=== PATIENT | male | born 1990 | race Caucasian/White ===

== ENCOUNTER 2018-10-19 08:57 | Inpatient (IN) ==
--- NOTE | 2018-10-19 10:44 | Diag Imaging Result Doc PS360 ---
EXAM: CHEST-1 VIEW 10/19/2018 HISTORY: cough TECHNIQUE: AP portable upright at 1031 COMMENT: There is scoliosis. The appearance the chest has not changed significantly since 10/02/2018. IMPRESSION: Stable chest. Electronically signed by Nirav Greer 10/19/2018 10:42 AM
--- NOTE | 2018-10-19 11:57 | PROVIDER DOCUMENTATION ---
This chart was entered by Aditi Vick Scribe, acting as scribe for Jacky Swann MD. HPI-General Adult - General Chief Complaint: Cough Stated Complaint: BLOODY SPUTUM Time Seen by Provider: 10/19/18 11:21 Source: family Allergies/Adverse Reactions: Patient Allergies Allergy/AdvReac Type Severity Reaction Status Date / Time ephedrine [Ephedrine] Allergy Severe lower Verified 10/02/18 11:21 threshold for seizures glycopyrrolate Allergy Severe "dries up Verified 10/02/18 11:21 his urine" pseudoephedrine Allergy Severe lower Verified 10/02/18 11:21 threshold for seizures vancomycin Allergy Intermediate RASH Verified 10/02/18 11:21 fluticasone propionate * Allergy Mild nose bleed Verified 10/02/18 11:21 [From Flonase] hydrocodone [Hydrocodone] Allergy Mild behavioral Verified 10/02/18 11:21 problems latex Allergy Mild HIVES Verified 10/02/18 11:21 meperidine HCl * Allergy Unknown Lowers Verified 10/02/18 11:21 [From Demerol] seizure threshold aloe vera Allergy RASH Verified 10/02/18 11:21 tramadol HCl * [From Ultram] Allergy Lowers Verified 10/02/18 11:21 seizure threshold coban Allergy Mild HIVES Uncoded 10/02/18 11:21 Home Medications: Home Medication List Medication Instructions Recorded Confirmed Last Taken Type Valproic Acid [Depakene Liquid] 500 mg PEG TID 04/04/15 09/09/18 09/09/18 04:00 History Budesonide [Pulmicort] 1 dose NEB BID 08/21/16 09/09/18 09/08/18 History Albuterol [Albuterol Neb] 1 inh NEB [id number] 03/30/17 09/09/18 09/08/18 History Clonazepam [Klonopin] 2 mg PEG DIRECTED 03/30/17 09/09/18 09/09/18 04:00 History Sennosides [Senna Liquid] 10 ml PEG QAM 03/30/17 09/09/18 09/08/18 History Bisacodyl [Dulcolax] 10 mg NJ DAILY 08/02/17 09/09/18 09/08/18 History Zonisamide [Zonegran] 200 mg PEG QHS 02/11/18 09/09/18 09/08/18 History Omeprazole/Sodium Bicarbonate 40 mg PEG DAILY 06/04/18 09/09/18 09/08/18 History [Zegerid 20 mg] Ipratropium Mobile Neb [Atrovent 1 dose NEB 4XDAY 09/04/18 09/09/18 09/08/18 History Neb] Miconazole 2% Cream [Monistat-Derm 1 dose TOP BID PRN 09/04/18 09/09/18 09/08/18 History 2% Cream] Mupirocin Cream [Bactroban Cream] 1 dose TOP BID PRN 09/04/18 09/09/18 09/08/18 History Zinc Oxide 40% Ointment [Desitin 1 dose TOP BID PRN 09/04/18 09/09/18 09/08/18 History Ointment] Famotidine [Pepcid Liquid] 20 mg PO DAILY #1 bottle 09/09/18 Unknown Rx Azithromycin [Zithromax Z-Calixto] 250 mg PO DIRECTED #1 pkg 09/12/18 Unknown Rx Clindamycin [Cleocin Liquid] 300 mg PO Q6HR #200 bottle 09/22/18 Unknown Rx Azithromycin 250 mg PEG DAILY #11 tab 10/02/18 Unknown Rx Azithromycin 250 mg PO DAILY #6 tab 10/19/18 Unknown Rx Metoclopramide [Reglan Liquid] 10 mg PO TID #30 udc 10/19/18 Unknown Rx - History of Present Illness -Gen Adult Nature of Presenting Problems: 28 y/o male presents to ED with recurrent cough onset 3 months ago and bloody bronchial sputum per mother of pt. Pt has cerebral palsy, is bedridden, and has a feeding tube. Pt has been seen in ED numerous times for same. Mother of pt reports she has not taken him to see PCP for the issue, but he has an appointment with pulmonology in 2 days. Pt is alert and oriented. Location of Pain/Injury: reports: none Pain Radiation: reports: no radiation Quality of Pain: reports: none Severity: reports: mild Onset/Duration: reports: other (3 months ago) Timing: reports: still present Context/Activities at Onset: reports: none Modifying Factors: improves with: nothing Associated Symptoms: reports: cough, other (bloody bronchial secretions with home suctioning. mom thinks pt is aspirating. is on zegrid 40/day, zantac 300/day per dr ge. to see pulmonaloist, dr puente on sunday.no fever at home. p ox 99% rm air at home.) Similar Symptoms Previously?: No Recently seen or treated by another doctor?: No Review of Systems - Adult - REVIEW OF SYSTEMS - ADULT ROS:: ROS per family Constitutional: denies: chills, fever Eyes: reports: no symptoms reported Ears, Nose, Mouth & Throat: reports: no symptoms reported Cardiovascular: denies: chest pain, palpitations Respiratory: reports: cough, other (bloody bronchial secretions). denies: shortness of breath Gastrointestinal: denies: abdominal pain, diarrhea, nausea, vomiting Genitourinary: reports: no symptoms reported Musculoskeletal: denies: back pain, joint pain Integumentary: reports: no symptoms reported Neurological: denies: dizziness/vertigo, seizure Psychiatric: reports: no symptoms reported Endocrine: reports: no symptoms reported Hematologic/Lymphatic: reports: no symptoms reported Allergic/Immunologic: reports: no symptoms reported All Other Systems: Reviewed and Negative Past History - Adult - PAST MEDICAL HISTORY-ADULT Review of Records: reports: Old Records Reviewed, Nursing Assessment Review, Medications Reviewed Major Childhood Illnesses: reports: denies history Cardiovascular: reports: denies history Respiratory: reports: bronchitis (frequent staph bronchitis), pneumonia (recurring aspiration) Gastrointestinal: reports: GERD, GI bleed (AVM), obstruction, other (constipation, neurognic bowel and bladder) Obstetrical/Gynecological: reports: denies history Genitourinary: reports: retention (mother caths patient daily), other (neurogenic bladder) Musculoskeletal: reports: other (scoliosis/ contractures of le's and upper extremities) Neurological: reports: Seizures/Epilepsy, other (cerebral palsy) Psychiatric: reports: denies history Endocrine/Immune: reports: thyroid disorder (hypothyroid) Other Conditions: reports: MRSA, other (VRE) - PRIOR SURGERIES/PROCEDURES Surgical/Procedure History: reports: cholecystectomy, tonsillectomy, bowel surgery (PEG tube), orthopedic (extremity) (clavicle repair), other (nerve stimiulator placement/ VNS to control seizures; cerebral palsy; Vijay syndrom hx of) - PRIOR HOSPITALIZATIONS Prior Hospitalizations: reports: for similar symptoms - IMMUNIZATION STATUS Childhood Immunizations: See Nurse Assessment Flu Vaccine: See Nurse Assessment - FAMILY HISTORY Family History: reviewed, not pertinent - SOCIAL HISTORY Smoking: non-smoker Substance Use: none/never Alcohol Use Frequency: never Living Situation: family Physical Exam-General - PHYSICAL EXAM-ADULT Initial Vital Signs Reviewed: Yes - CONSTITUTIONAL General Appearance: appears well, alert, no apparent distress - EYES Eyes: PERRL/EOMI, pink conjunctivae - HEAD, EARS, NOSE, MOUTH & THROAT HENMT: normocephalic/atraumatic, moist mucous membranes, normal ENT inspection - NECK Neck: non-tender, full range of motion - RESPIRATORY Respiratory: chest non-tender, lungs clear, normal breath sounds, other (congested cough) - CARDIOVASCULAR Cardiovascular: normal peripheral pulses, regular rate, rhythm - GASTROINTESTINAL (ABDOMEN) Abdominal Exam: normal bowel sounds, non tender, soft - MUSCULOSKELETAL Back Exam: normal inspection, no CVA tenderness Extremity: normal range of motion, non-tender, normal gait - SKIN Integumentary: normal color, warm/dry - NEUROLOGIC Neurologic: grossly normal - PSYCHIATRIC Psych/Mental Status: normal mood/affect, normal thought content, normal thought process Progress - PLAN OF CARE/RESULTS Progress/Plan/Lab Results: Vital Signs - 8 hr 10/19/18 09:19 Temperature 97.2 F L Pulse Rate 70 Respiratory Rate 18 Blood Pressure 109/80 O2 Sat by Pulse Oximetry 96 Orders Category Date Time Status IV Insertion ORDERED Care 10/19/18 10:10 Completed CHEST-1 VIEW [RAD] Stat Exams 10/19/18 10:10 Completed CBC WITH DIFF [HEME] Stat Lab 10/19/18 11:19 Ordered COMPREHENSIVE METABOLIC PANEL [CHEM] Stat Lab 10/19/18 11:19 Ordered PROTIME WITH INR [COAG] Stat Lab 10/19/18 11:19 Ordered Result Diagrams: 10/19/18 11:40 - REASSESSMENT Reassessment #1 Time Reassessed: 11:53 Status: unchanged (pt has upper airway congestion but lungs completely clear to auscultation,p ox 99% rm air, CXR clear. will add reglan for possiblreflux problem . pt to see dr Puente in 2 days.) - XRAY 1 XRAY Study: Chest Impression: Normal (COMMENT: There is scoliosis. The appearance the chest has not changed significantly since 10/02/2018. IMPRESSION: Stable chest. Electronically signed by Nirav Greer 10/19/2018 10:42 AM 10/19/18 1042) Departure - Departure Date of Disposition Decision: 10/19/18 Time of Disposition Decision: 11:35 DIAGNOSIS: Bronchitis, Chronic cough GERD (gastroesophageal reflux disease) Qualifiers: Esophagitis presence: without esophagitis Qualified Code(s): K21.9 - Gastro-es ophageal reflux disease without esophagitis Disposition: HOME 01 Certified Medical Emergency: Emergent Condition: Stable Additional Freetext Instructions: ED Follow Up Instructions: Go to previously scheduled pulmonology appointment on Sunday. You have been treated by a care provider in the Emergency Department. These instructions are being provided to you so you can have an understanding of how to care for yourself upon discharge. Upon discharge from the Emergency De partment, you are responsible for making arrangements for follow-up care by a physician of your choice. Take all prescribed medications as directed. Return to the Emergency Department immediately for any new or worsening symptoms. You may call the Physician Referral phone number at [phone] to obtain a list of Physicians who are taking new patients. Prescriptions: Azithromycin 250 mg PO DAILY #6 tab Metoclopramide [Reglan Liquid] 10 mg PO TID #30 udc Referrals and Follow-Ups: Maria L Enciso MD [Primary Care Provider] - Discharge Education: Gastroesophageal Reflux Disease, Adult, [id number], Acute Bronchitis, Adult - Critical Care Note This patient required my direct & personal management of CC.: No Attestation - Physician/ MOLLY Attestation Patient care was provided by Advanced Practice Provider:: No The physician spent face to face time with patient:: Yes Advanced Practice Provider documentation review:: Supervising physician onsite and consulted in the evaluation and care of this patient. The physician did have a face to face encounter with the patient. This chart was documented by the indicated scribe, (Aditi Vick Scribe) and accurately reflects the services I performed and decisions made by me, Jacky Swann MD, as attested by the provider's signature.
[2018-10-19 11:58] LABS: EOS# 0.05 X1000 (0.0-0.7); HEMATOCRIT 42.6 % (42.0-52.0); HEMOGLOBIN 14.1 g/dL (14.0-18.0); LYMPH# 2.11 X1000 (1.2-3.4); LYMPH% 43.9 % (20.5-51.1); MCH 32.2 PG (27-31); MCHC 33.1 g/dL (33-37); MCV 97.3 FL (81-99); MONO# 0.49 X1000 (0.11-0.59); MONO% 10.2 % (1.7-9.3); MPV 11.6 FL (7.4-10.4); NEUT# 2.16 X1000 (1.4-6.5); NEUT% 44.9 % (42.2-75.2); PLT 98 X1000 (130-400); RBC 4.38 XMIL (4.7-6.1); RDW 13.3 % (11.5-14.5); WBC 4.81 X1000 (4.8-10.8)
[2018-10-19 11:59] LABS: INR 1.04; PROTIME 14.4 Seconds (11.0-16.0)
[2018-10-19 12:12] LABS: AGAP 10; ALB/GLOB RATIO 1.1; ALBUMIN 3.9 g/dL (3.5-5.0); ALKALINE PHOSPHATASE 58 U/L (32-122); BUN 8 mg/dL (8-22); CALCIUM 9.4 mg/dL (8.8-10.2); CHLORIDE 100 mmol/L (98-107); COSMO 270; CREATININE 0.6 mg/dL (0.7-1.2); ESTIMATED GFR > 60; GLUCOSE 90 mg/dL (70-104); GOT 17 U/L (10-34); GPT 8 U/L (10-44); POTASSIUM 4.1 mmol/L (3.5-5.1); SODIUM 136 mmol/L (136-145); TCO2 26 mmol/L (25-35); TOTAL BILIRUBIN 0.18 mg/dL (0.20-1.00); TOTAL PROTEIN 7.3 g/dL (6.3-8.3)
[2018-10-19] MEDS ORDERED: NS 1,000 ML IV ONE (15:42)
[2018-10-19] MEDS ORDERED: XOPENEX NEB INH PRN (15:43)
--- NOTE | 2018-10-19 16:49 | HISTORY AND PHYSICAL ---
PRIMARY CARE PHYSICIAN: Dr. Enciso CHIEF COMPLAINT: Cough. HISTORY OF PRESENT ILLNESS: Mr. Lopez is a 28-year-old male well known to our service with a history of cerebral palsy, who is taken care of by his mother. He is a total care patient and bedbound and is only fed via PEG tube. His mother states that she has been concerned over the past few days and weeks that he has gurgling and coughing despite the extensive deep suctioning that she does and that she feels he has a respiratory infection. There has been no fever, and she reports that his pulse oximetry has been normal at home. With the exception of the congested upper airway, he has been in his normal state of health. When she came to the ER done, he had a workup done which did not show anything acute. His chest x-ray was normal, and his white blood cell count was normal as were his chemistries and vital signs. While in the ER, his mother apparently aspirated some blood out of his PEG tube and felt that he had continued GI bleeding from ulcers that were observed on EGD in the past. Dr. Jimenez with GI was consulted in the ER. He indeed felt the patient had some coffee-ground emesis coming out of his PEG tube and felt that he needed to be admitted, so we will admit him and start him on Protonix and Carafate. PAST MEDICAL HISTORY: 1. Cerebral palsy, total care patient. 2. History of encephalopathy and epilepsy. 3. History of GI bleeding and gastric ulcers in the past. 4. History of multiple upper respiratory infections. 5. Neurogenic bowel. PAST SURGICAL HISTORY: He has had a cholecystectomy, bowel surgery with PEG placement multiple times, right clavicle repair, nerve stimulator to control seizures, tonsillectomy, eye surgery, EGDs. SOCIAL HISTORY: Lives with his mother. He does not smoke, drink or use illicit substances. REVIEW OF SYSTEMS: Unable to obtain. ALLERGIES: Ephedrine, glycopyrrolate, pseudoephedrine, vancomycin, Flonase, hydrocodone, latex, Demerol, Aloe Vera, tramadol and Coban. HOME MEDICATIONS: Bisacodyl 10 mg FL daily, Pulmicort inhaled as directed, Klonopin 2 mg per PEG as scheduled, Pepcid liquid 20 mg daily, ipratropium nebulizer 4 times a day, Reglan 10 mg p.o. t.i.d., Zantac 20 mg p.o. daily, Senokot 10 mL per PEG in the morning, Depakote liquid 10 mL via PEG t.i.d., Zonegran 200 mg per PEG at bedtime. PHYSICAL EXAMINATION: VITAL SIGNS: Blood pressure is 108/66, heart rate 76, respiratory rate 20, O2 saturation is 98% on room air, temperature is 97.6. GENERAL: A chronically ill, frail appearing 28-year-old male lying in hospital bed in no acute distress. NEUROLOGICAL: He is nonverbal. His eyes open spontaneously. He does not follow commands. His legs and arms are crossed. He resists passive eye opening. HEENT: Head is atraumatic and normocephalic. His oral mucosa is dry. NECK: Trachea is midline. There is no JVD. CHEST: Bases are clear to auscultation. He does have some congestion in the upper airway. CARDIOVASCULAR: Regular rate and rhythm. S1 and S2 noted. There is no murmur. GASTROINTESTINAL: Soft. PEG tube without erythema or blood. Hypoactive bowel sounds. EXTREMITIES: Without edema or clubbing. DIAGNOSTIC DATA: WBC is 4.8, hemoglobin 14.1, hematocrit 42.6, platelet count 98. INR is 1.04. Sodium is 136, potassium 4.1, chloride 100, CO2 is 26, anion gap is 10, BUN is 8, creatinine 0.6, glucose 90, calcium 9.4, ALT is 8, alkaline phosphatase 58, albumin 3.9. Chest x-ray is negative. ASSESSMENT AND PLAN: 1. Apparent gastrointestinal bleed. There is no blood visualized on exam, and his blood counts are actually better than they have been in quite some time. We will start him on some Protonix and Carafate as recommended by Dr. Jimenez. He is scheduled for an EGD on Sunday. We will check daily labs and continue all of his home medications. 2. History of cerebral palsy. Aware. Stable. 3. History of epilepsy. Stable. Aware. We will continue his home medications. 4. Gastroesophageal reflux disease with a history of gastric ulcers. Continue therapy as outlined in number 1. 5. Upper respiratory congestion. We will continue breathing treatments. Chest is negative. No white count or fever. 6. Thrombocytopenia. This appears to be a very chronic issue. We will monitor platelet counts daily. Only transfuse if necessary. 7. DVT prophylaxis with SCDs. Further recommendations to follow. Dictated by MICHEAL Camacho for Elizabeth Cheney MD cc: MICHEAL Camacho MD I performed a face to face encounter on the patient. I reviewed all labs and imaging on the patient. I agree with the H&P as dictated. is a 28 year old male who was brought to the ER by his parents due to blood coming from his peg tube. On exam, the patient is awake and alert. His heart sounds are normal. His lung sounds are diminished at the bases. Will admit the patient to the medical floor on telemetry. Will consult GI and start the patient on IV protonix. The patient is also constipated so we will start laxative therapy. His H/H will be monitored closely. MTDD
[2018-10-19] MEDS ORDERED: DEPAKENE LIQUID PEG SCH (17:00)
[2018-10-19] MEDS: PROTONIX IV SCH (17:12)
[2018-10-19] MEDS: PULMICORT INH SCH (19:20)
[2018-10-19] MEDS: XOPENEX NEB INH SCH (19:20)
[2018-10-19] MEDS: ZONEGRAN PEG SCH (22:45)
[2018-10-19] MEDS: KLONOPIN PEG SCH (22:45)
[2018-10-19] MEDS: CARAFATE LIQUID PEG SCH (22:45)
--- NOTE | 2018-10-19 23:33 | GASTROENTEROLOGY CONSULTATION ---
DATE: 10/19/2018 REQUESTING PHYSICIAN: Dr. Elizabeth Cheney. PRIMARY CARE DOCTORS: Dr. Maria L Enciso. REASON FOR CONSULTATION: Coffee-grounds in the PEG tube. HISTORY OF PRESENT ILLNESS: Mr. Lopez is a 28-year-old male who was admitted on 10/19/2018 for cough and bronchitis. The patient has cerebral palsy and he has a chronic PEG tube, has been replaced on 09/09/[address] Olson. According to the patient's mother, who is his caregiver, she noted coffee-ground material in his PEG tube. According to the patient's mother, the patient has had EGD done a few months ago. At that time, there was evidence of some ulcers in the stomach. During this admission, the patient's H and H was normal. Gastroenterology was counseled for the management of coffee-grounds in the PEG tube. PAST MEDICAL HISTORY: 1. Reflux esophagitis. 2. Hiatal hernia. 3. History of pyloric channel ulcer. 4. Severe acute erosive gastritis. 5. Chronic reflux disease. 6. Cerebral palsy. 7. Seizure disorder. 8. Neurogenic bowels. 9. Prior MRSA infections. PAST SURGICAL HISTORY: 1. Cholecystectomy. 2. Bowel surgery with PEG tube placement. 3. Right clavicle repair. 4. Nerve stimulator to control seizures. 5. Tonsillectomy. 6. Eye surgery. 7. Repair of muscles. FAMILY HISTORY: Noncontributory. SOCIAL HISTORY: He lives with his mother and father. No history of alcohol or tobacco. ALLERGIES: Pseudoephedrine, glycopyrrolate, vancomycin, Flonase, latex, Demerol, aloe vera, tramadol, Coban, and hydrocodone. MEDICATIONS IN THE HOSPITAL INCLUDE: Zonisamide, Carafate 1 g per PEG every 6 hours, Dulcolax 10 mg per rectum daily, Pulmicort 0.5 mg inhaled b.i.d., clonazepam 2 mg per PEG as directed, and Xopenex 1.25 mg inhaled every 4 hours as needed, and then normal saline 75 ml/h, Protonix IV b.i.d., ranitidine 300 mg per PEG daily, valproic acid 500 mg per PEG t.i.d., and famotidine 20 mg once daily. The patient will be currently NPO. REVIEW OF SYSTEMS: Obtained. Patient has cerebral palsy. History obtained from the records and the patient's mother at the bedside. PHYSICAL EXAMINATION: Vital Signs: Temperature 97.6 degrees, pulse of 76, respiratory 20, blood pressure 108/62, saturating 92% on room air. Body weight 100 pounds 8 ounces. BMI 16.2 kg/m2. General: Thinly built, lying in bed, in no acute distress. HEENT: No pallor. No icterus. Neck: Supple. Abdomen: Soft, nontender. No guarding. PEG tube in place. External bur was in place. The PEG tube site appeared very clean, there was no redness or erythema noted around the PEG tube site. No drainage noted around the PEG tube site. There was evidence of coffee-grounds aspirate in the PEG tubing. Abdomen was soft. Extremities: He has lack of muscle mass in the upper and lower extremities. LABS: His hemoglobin and hematocrit is 14.1 and 42.6, white count of 4.81, platelet count of 98,000. INR 1.04, PTT of 14.4. Sodium 130, potassium 4.1, chloride 100, bicarb 26, anion gap 10, BUN of 8, creatinine 0.6. Glucose of 90, calcium 9.4, total bilirubin is 0.18, AST 17, ALT 8, alkaline phosphatase 58, total protein is 7.3, albumin 3.9. IMAGING: Chest x-ray done today showed there is scoliosis, otherwise stable chest. His last EGD report was from 09/09/[address] Olson, which showed reflux esophagitis with bile reflux to mid esophagus, hiatal hernia, severe acute erosive gastritis changes consistent with Elyse fundoplication and pyloric channel ulcer. IMPRESSION AND PLAN: 1. Coffee-grounds in the PEG tube. 2. Cerebral palsy. 3. History of gastritis, esophagitis, and hiatal hernia on last EGD in 4. History of seizures. RECOMMENDATIONS: We will continue Protonix b.i.d. We will keep him NPO but will give him IV fluids. We may have to consider either famotidine or ranitidine at bedtime. He will continue on his seizure medications per the PEG tube. He will continue bowel regimen with Dulcolax. Depending on his clinical course, we will decide about EGD, likely on Sunday by Dr. Vann. The risks, benefits, indications, alternatives were discussed with the patient's family at bedside. All questions answered. Please call us if any further questions. cc: MD Denys Day MD Katherine Takundwa, MD Bhavna Gowda, MD MTDD
[2018-10-20] MEDS: XOPENEX NEB INH SCH ×6 (00:03→19:15)
[2018-10-20] MEDS: SODIUM CHLORIDE 0.9% INJ SCH ×2 (03:38→17:09)
[2018-10-20] MEDS: CARAFATE LIQUID PEG SCH ×4 (03:38→21:08)
[2018-10-20] MEDS: PROTONIX IV SCH ×2 (03:38→17:09)
[2018-10-20 06:51] LABS: BASO# 0.01 X1000 (0.0-0.2); BASO% 0.2 % (0.0-0.8); EOS# 0.05 X1000 (0.0-0.7); EOS% 1.2 % (0.0-10.0); HEMOGLOBIN 12.4 g/dL (14.0-18.0); LYMPH# 2.32 X1000 (1.2-3.4); LYMPH% 56.9 % (20.5-51.1); MCH 32.6 PG (27-31); MCHC 33.5 g/dL (33-37); MCV 97.4 FL (81-99); MONO# 0.46 X1000 (0.11-0.59); MONO% 11.3 % (1.7-9.3); MPV 11.8 FL (7.4-10.4); NEUT# 1.24 X1000 (1.4-6.5); NEUT% 30.4 % (42.2-75.2); PLT 88 X1000 (130-400); RDW 13.4 % (11.5-14.5); WBC 4.08 X1000 (4.8-10.8)
[2018-10-20 07:17] LABS: AGAP 12; BUN 9 mg/dL (8-22); CALCIUM 8.7 mg/dL (8.8-10.2); CHLORIDE 102 mmol/L (98-107); COSMO 268; CREATININE 0.5 mg/dL (0.7-1.2); ESTIMATED GFR > 60; GLUCOSE 78 mg/dL (70-104); MAGNESIUM 1.8 mg/dL (1.5-2.7); POTASSIUM 3.7 mmol/L (3.5-5.1); SODIUM 135 mmol/L (136-145); TCO2 21 mmol/L (25-35)
[2018-10-20] MEDS: PULMICORT INH SCH ×3 (07:32→19:15)
[2018-10-20] MEDS: KLONOPIN PEG SCH ×2 (08:52→21:09)
[2018-10-20] MEDS: DEPAKENE LIQUID PEG SCH ×3 (08:53→21:08)
[2018-10-20] MEDS ORDERED: PEPCID LIQUID PO SCH (09:00)
[2018-10-20] MEDS: ZANTAC LIQUID PEG SCH (09:07)
[2018-10-20] MEDS: SENNA LIQUID PEG SCH (09:07)
[2018-10-20] MEDS: DULCOLAX PR SCH (09:08)
[2018-10-20] MEDS: BENADRYL IV PRN ×2 (13:13→21:24)
[2018-10-20] MEDS ORDERED: NS 1,000 ML ONE (14:17)
[2018-10-20] MEDS: MIRALAX PEG SCH (15:05)
[2018-10-20] MEDS: NS 1,000 ML IV SCH (16:05)
--- NOTE | 2018-10-20 17:08 | GASTROENTEROLOGY PROGRESS NOTE ---
DATE: 10/20/2018 PRIMARY TRIMMING CUTTER MACHINE: Carol Olson MD SUBJECTIVE: Patient is resting in bed. No evidence of any more GI bleeding. He had a very small bowel movement today. His mother was present at bedside. No fevers reported. OBJECTIVE: Vital Signs: Temperature 97.6, pulse rate of 68, respiratory rate 18, blood pressure 120/69, saturating 98% on room air. General Appearance: Thinly built, lying in bed, in no acute distress. HEENT: Mild pallor. No icterus. Neck: Supple. Abdomen: There is a PEG tube in place. Abdomen is soft, nondistended. No guarding. No rebound. The external PEG tube site appears healthy. There was no evidence of any erythema around the external bumper or any drainage on the external bumper. Extremities: No cyanosis or clubbing. Neurological: He is awake, but he has baseline cerebral palsy. LABORATORY DATA: Hemoglobin is 12.4, hematocrit 37, white count of 4.08, platelet count of 88,000. Sodium 135, potassium 3.7, chloride 102, bicarbonate 21, anion gap 12, BUN of 9, creatinine 0.5, glucose of 78, calcium is 8.7. Magnesium 1.8. IMPRESSION AND PLAN: 1. Coffee-ground emesis in the PEG tube. In this regard, we will keep the patient on Protonix b.i.d. We will also keep him on ranitidine per PEG daily. We will watch his hemoglobin and hematocrit. We will have a CBC tomorrow morning. 2. Constipation. He will continue on senna 10 mL per PEG q.a.m., and we will start him on MiraLAX per PEG, 17 g p.o. daily. 3. We will start the tube feeds today at 10 mL/h and slowly advance as tolerated. We have requested Nutrition consultation. 4. Seizures. He will continue on seizure medication. 5. Cerebral palsy. Aware. 6. Dehydration. We will start patient on IV fluids with normal saline at 75 mL/hour. 7. Gastrointestinal (GI) prophylaxis. As above with PPIs. The above plans were discussed with the patient's family at bedside, and all questions were answered. Please call us with any further questions. Dr. Vann will resume the care for tomorrow. cc: Vini Jimenez MD [facility]
--- NOTE | 2018-10-20 19:06 | PROGRESS NOTE ---
DATE: 10/20/2018 SUBJECTIVE: The patient is resting comfortably in bed. His family is present at the bedside. OBJECTIVE: Vital Signs: Temperature 98.2 degrees, blood pressure 105/67, heart rate 76, respirations 16, O2 saturations 100% on room air. General: This is a young male lying in bed in no acute distress. Heart: S1, S2 normal. Regular rate and rhythm. Lungs: Clear to auscultation bilaterally. Abdomen: Soft, nontender, nondistended. Extremities: No edema. No cyanosis. Neurologic: The patient is awake. LABORATORY DATA: White blood cell count 4, hemoglobin 12, hematocrit 37, platelets 88,000. Sodium 135, potassium 3.7, chloride 102, CO2 of 21, BUN 9, creatinine 0.4, glucose 78. Magnesium 1.8. ASSESSMENT AND PLAN: 1. Gastrointestinal bleed. Continue on protonix. GI is following. 2. Cerebral palsy. Aware 3. Chronic thrombocytopenia. Stable. 4. Seizure disorder. Continue on valproic acid. cc: Elizabeth Cheney MD MTDD
[2018-10-20] MEDS: ZONEGRAN PEG SCH (21:09)
[2018-10-21] MEDS: XOPENEX NEB INH SCH ×7 (02:13→23:16)
[2018-10-21] MEDS: CARAFATE LIQUID PEG SCH ×4 (04:47→21:31)
[2018-10-21] MEDS: PROTONIX IV SCH ×2 (04:57→16:54)
[2018-10-21] MEDS: NS 1,000 ML IV SCH ×2 (04:57→17:52)
[2018-10-21] MEDS: SODIUM CHLORIDE 0.9% INJ SCH ×2 (04:57→16:54)
[2018-10-21] MEDS ORDERED: KLONOPIN PO SCH (06:00)
[2018-10-21] MEDS: DEPAKENE LIQUID PEG SCH ×3 (06:28→21:31)
[2018-10-21 06:47] LABS: BASO# 0.01 X1000 (0.0-0.2); BASO% 0.1 % (0.0-0.8); EOS# 0.12 X1000 (0.0-0.7); EOS% 1.5 % (0.0-10.0); HEMATOCRIT 39.6 % (42.0-52.0); HEMOGLOBIN 12.9 g/dL (14.0-18.0); LYMPH# 1.76 X1000 (1.2-3.4); LYMPH% 21.5 % (20.5-51.1); MCH 32.4 PG (27-31); MCHC 32.6 g/dL (33-37); MCV 99.5 FL (81-99); MONO# 1.18 X1000 (0.11-0.59); MONO% 14.4 % (1.7-9.3); NEUT# 5.13 X1000 (1.4-6.5); NEUT% 62.5 % (42.2-75.2); PLT 82 X1000 (130-400); RBC 3.98 XMIL (4.7-6.1); RDW 13.8 % (11.5-14.5)
[2018-10-21 06:48] LABS: AGAP 11; BUN 7 mg/dL (8-22); CALCIUM 8.8 mg/dL (8.8-10.2); CHLORIDE 110 mmol/L (98-107); COSMO 283; CREATININE 0.5 mg/dL (0.7-1.2); ESTIMATED GFR > 60; GLUCOSE 99 mg/dL (70-104); PHOSPHORUS 3.7 mg/dL (2.7-4.5); POTASSIUM 4.2 mmol/L (3.5-5.1); PREALBUMIN 20.3 mg/dL (20-40); SODIUM 143 mmol/L (136-145); TCO2 22 mmol/L (25-35)
[2018-10-21] MEDS: KLONOPIN PO SCH (06:52)
[2018-10-21] MEDS: PULMICORT INH SCH ×2 (07:41→19:34)
[2018-10-21] MEDS: MIRALAX PEG SCH (10:09)
[2018-10-21] MEDS: SENNA LIQUID PEG SCH (10:09)
[2018-10-21] MEDS: DULCOLAX PR SCH (10:10)
[2018-10-21] MEDS ORDERED: SORBITOL PEG ONE (13:09)
[2018-10-21] MEDS: ZANTAC LIQUID PEG SCH (14:10)
[2018-10-21] MEDS: KLONOPIN PEG SCH ×2 (14:11→21:32)
--- NOTE | 2018-10-21 16:08 | Diag Imaging Result Doc PS360 ---
EXAM: ABDOMEN FLAT/UPRIGHT 10/21/2018 HISTORY: confirm GJ tube placement TECHNIQUE: Flat and upright abdomen two views COMMENT: There is a gastrojejunal tube with its tip apparently on the left side in the jejunum. There is slightly less stool present in the colon than on the previous examination of 09/09/2018. No contrast was injected in the tube on the current examination. IMPRESSION: Tube tip apparently in the jejunum as previously. Electronically signed by Nirav Greer 10/21/2018 4:06 PM
[2018-10-21] MEDS ORDERED: LACTULOSE PEG ONE (18:34)
--- NOTE | 2018-10-21 18:42 | PROGRESS NOTE ---
DATE: 10/21/2018 SUBJECTIVE: The patient is resting comfortably in bed. He is having regular bowel movements. OBJECTIVE: Vital Signs: Temperature 98.3 degrees, blood pressure 102/76, heart rate 114, respirations 20, O2 saturations 98% on room air. General: This is a young male lying in bed in no acute distress. Heart: S1, S2 normal. Regular rate and rhythm. Lungs: Equal air entry bilaterally. No wheezing. No rales. No rhonchi. Abdomen: Positive bowel sounds. Soft, nontender, nondistended. Extremities: No edema, no cyanosis. Neurologic: The patient is awake and able to move his extremities; however, they are contracted. LABORATORY DATA: White blood cell count 8.2, hemoglobin 12, hematocrit 39, platelets 82,000. Sodium 143, potassium 4.2, chloride 110, CO2 22, BUN 7, creatinine 0.5, glucose 99. ASSESSMENT AND PLAN: 1. Possible gastrointestinal bleed. The patient's hemoglobin and hematocrit have been stable since admission. No obvious bleeding noted so far during this admission. We will await further recommendations from GI. 2. Constipation. Improved. Continue with the current bowel regimen. 3. Cerebral palsy. Aware. 4. Chronic thrombocytopenia. Stable. 5. Seizure disorder. Continue on valproic acid. 6. Nutrition. Continue with tube feeds. cc: Elizabeth Cheney MD
--- NOTE | 2018-10-21 19:38 | GASTROENTEROLOGY PROGRESS NOTE ---
DATE: 10/21/2018 SUBJECTIVE: The patient was resting comfortably. No signs of agitation. Mother tells me that he still has some cough. She also informs me that for the past 3 days, he has not had any bowel movements. OBJECTIVE: Vital Signs: Temperature 98.3, pulse 114 per minute, breathing 20, blood pressure 102/76. Abdomen: Full, soft, nontender. But he tenses up his abdomen on examination. The PEG site appeared to be clean and dry. LABORATORIES: Reviewed which showed sodium 143, potassium 4.2, chloride 110, bicarb level 22. BUN is 7, creatinine 0.3. WBC 8.20, hemoglobin 12.9, hematocrit 39.6, MCV 99.5, platelets were 82. IMPRESSION: 1. Constipation. I will give him lactulose to see if it helps him to have a bowel movement. 2. Reflux, further complicated by constipation. Hopefully, constipation will help his reflux. In the meantime, I agree with continuing the current tube feeding and keep his head elevated all the time and also continue proton pump inhibitor. 3. Cerebral palsy is unchanged and stable, not much to add. I have discussed this case with the patient's mother, who was present at bedside. She understood and agrees to proceed. cc: Denys Vann MD
[2018-10-21] MEDS: ZONEGRAN PEG SCH (21:31)
[2018-10-22] MEDS ORDERED: LACTULOSE PO ONE (02:58)
[2018-10-22] MEDS: XOPENEX NEB INH SCH ×6 (03:22→22:44)
[2018-10-22] MEDS: PROTONIX IV SCH ×2 (03:29→16:25)
[2018-10-22] MEDS: CARAFATE LIQUID PEG SCH ×4 (03:29→20:53)
[2018-10-22] MEDS: KLONOPIN PO SCH (05:21)
[2018-10-22] MEDS: DEPAKENE LIQUID PEG SCH ×3 (05:21→20:55)
[2018-10-22 05:42] LABS: BASO# 0.02 X1000 (0.0-0.2); BASO% 0.2 % (0.0-0.8); EOS# 0.13 X1000 (0.0-0.7); EOS% 1.2 % (0.0-10.0); HEMATOCRIT 38.7 % (42.0-52.0); HEMOGLOBIN 12.5 g/dL (14.0-18.0); LYMPH# 1.93 X1000 (1.2-3.4); LYMPH% 17.8 % (20.5-51.1); MCH 32.2 PG (27-31); MCHC 32.3 g/dL (33-37); MCV 99.7 FL (81-99); MONO# 1.69 X1000 (0.11-0.59); MONO% 15.6 % (1.7-9.3); NEUT# 7.09 X1000 (1.4-6.5); NEUT% 65.2 % (42.2-75.2); PLT 83 X1000 (130-400); RBC 3.88 XMIL (4.7-6.1); WBC 10.86 X1000 (4.8-10.8)
[2018-10-22 06:16] LABS: AGAP 11; BUN 3 mg/dL (8-22); CALCIUM 8.8 mg/dL (8.8-10.2); CHLORIDE 102 mmol/L (98-107); COSMO 266; CREATININE 0.5 mg/dL (0.7-1.2); ESTIMATED GFR > 60; GLUCOSE 92 mg/dL (70-104); SODIUM 135 mmol/L (136-145); TCO2 22 mmol/L (25-35)
[2018-10-22] MEDS: NS 1,000 ML IV SCH ×2 (06:47→23:00)
[2018-10-22] MEDS: PULMICORT INH SCH ×3 (07:24→19:30)
[2018-10-22] MEDS: SENNA LIQUID PEG SCH (09:31)
[2018-10-22] MEDS: ZANTAC LIQUID PEG SCH (09:33)
[2018-10-22] MEDS: MIRALAX PEG SCH (09:34)
[2018-10-22] MEDS: DULCOLAX PR SCH (09:54)
--- NOTE | 2018-10-22 15:04 | PROGRESS NOTE ---
DATE: 10/22/2018 SUBJECTIVE: Patient resting in bed. The patient was noted to have recurrent seizure activity this morning. He does have family present in the room. OBJECTIVE: Vital Signs: Temperature 99.5 degrees, pulse 93, respirations 18, blood pressure is 130/59, oxygen saturation 97%. HEENT: Head is atraumatic, normocephalic. Cardiovascular: S1, S2. Respiratory: Evidence of good entry bilaterally. Abdomen: Soft, nontender. No masses felt. Extremities: No evidence of edema. Central Nervous System: No obvious focal deficits are noted. The patient is noted to have contractures. LABORATORY DATA: WBCs 10.86, hematocrit 38.7, with a platelet count of 83,000. Sodium is 135, potassium 4.0, chloride is 102, bicarb is 22, BUN is 3, creatinine 0.5. ASSESSMENT AND PLAN: 1. Gastrointestinal bleed. Continue the patient on proton pump inhibitor. Monitor hemoglobin and hematocrit. Transfuse packed red blood cells if needed. Gastroenterology following. 2. Gastroesophageal reflux disease. Maintain the patient on proton pump inhibitor. Keep head of bed elevated. 3. Status post percutaneous endoscopic gastrostomy. Continue percutaneous endoscopic gastrostomy tube feeding. 4. Seizure disorder. Maintain the patient on seizure precaution. Use Ativan on an as needed basis for active seizures, and maintain the patient on antiepileptic drugs. Will consult with Neurology. 5. Constipation. Continue current regimen. 6. Thrombocytopenia. There has been a steady decline in the patient's platelet count. I suspect that this may be medication induced. Will continue to follow up on the patient's platelet count, and discontinue any offending drugs. 7. Deep vein thrombosis prophylaxis. Sequential compression devices. 8. Gastrointestinal prophylaxis. Proton pump inhibitor. cc: Javier Raygoza MD
--- NOTE | 2018-10-22 16:14 | Diag Imaging Result Doc PS360 ---
EXAM: CT THORAX/ABD/PELVIS W/CON INDICATION: cough/leukocytosis/reflux/constipation r/o pna TECHNIQUE: This exam was performed using automated exposure control, adjustment of mA or kV according to patient size, and/or use of iterative reconstruction technique. COMPARISON: 09/21/2016 FINDINGS: CHEST: There has been development of patchy consolidation at both lung bases, worse on the left, suggesting pneumonia. There is a component of atelectasis at the left lung base, however. There is no pleural fluid collection and no pneumothorax. There is no cardiomegaly. There is no evidence of significant mediastinal or hilar lymphadenopathy. There is severe thoracolumbar scoliosis. The bony structures are intact. ABDOMEN/PELVIS: A jejunostomy tube is in place. The gallbladder is not identified and is probably contracted. The spleen, pancreas, adrenal glands, kidneys, and urinary bladder are grossly unremarkable. There is increased stool in the rectum, which is mildly distended suggesting a small rectal fecal impaction. There is mild thickening of the distal sigmoid colonic wall and the rectum suggesting nonspecific colitis/proctitis, possibly stercoral colitis. There is no obstructive bowel pattern. The remainder of the GI tract is essentially unremarkable. IMPRESSION: 1.Mild patchy consolidation at both lung bases suggesting pneumonia, possibly from aspiration. 2.Small rectal fecal impaction with mild thickening of the rectal and distal sigmoid colonic olson suggesting colitis. Consider stercoral colitis. Electronically signed by Severo Bautista 10/22/2018 4:11 PM
[2018-10-22] MEDS: KLONOPIN PEG SCH ×2 (16:23→20:53)
[2018-10-22] MEDS: SODIUM CHLORIDE 0.9% INJ SCH (16:25)
[2018-10-22] MEDS ORDERED: NS 1,000 ML IV ONE (16:32)
[2018-10-22] MEDS: ATIVAN IV PRN (16:35)
--- NOTE | 2018-10-22 16:39 | PROGRESS NOTE ---
DATE: 10/22/2018 ASSESSMENT AND PLAN: He had a chest, abdomen and pelvis CT due to congestive cough and also constipation. The impression shows that he has bibasilar consolidation that is consistent with pneumonia and possible aspiration pneumonia. It also shows a small rectal fecal impaction with mild thickening of the rectal and distal sigmoid colonic wall suggesting colitis. He has a low grade fever of 99.2, 99.5, and his white blood cell count went from 8000 up to 10,000 today, with a serum lactate of 2.9. So we will start him on some broad spectrum antibiotics. We will do Zyvox and Zosyn and give him some IV fluids. We will repeat a serum lactate. I would have done a complete progress note, but there is one already completed by Dr. Raygoza. Dictated by MICHEAL Sullivan for Javier Raygoza MD cc: MICHEAL Sullivan MD
[2018-10-22] MEDS: ZOSYN 3.375 GM in NS 50 ML IV SCH ×2 (16:55→23:54)
--- NOTE | 2018-10-22 17:44 | CONSULTATION ---
DATE OF CONSULTATION: 10/22/2018 REASON FOR CONSULTATION: Seizures. 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 History is from the patient's attentive mother. I last saw the patient in June 2018 when he was admitted for a malfunctioning feeding tube and was having numerous breakthrough seizures. During that hospitalization he was not receiving his seizure medications due to concern of the malfunctioning feeding tube, though that was remedied, and it was determined that he was able to use part of the feeding tube for medication administration. Mother reports that the patient was ultimately discharged, but unfortunately his breakthrough seizures continued to be more frequent, prompting medication adjustment by his neurologist Dr. Peterson Calhoun. She reports the Depakene dosage was increased, though Klonopin and Zonegran remained the same. A level was checked on October 17 and was elevated in the 140s range. Subsequently the Depakene was reduced to its current dose, and by report he has done reasonably well with that. He has had about 5 seizures since October 16, with 4 seizures occurring this admission. They are his typical seizures. Mother is not interested in adjusting any seizure medications at this time. PAST MEDICAL HISTORY: Includes static encephalopathy, cerebral palsy, longstanding epilepsy. PAST SURGICAL HISTORY: Corpus callosotomy, vagal nerve stimulator. FAMILY HISTORY: No seizures. SOCIAL HISTORY: He lives with his parents. ALLERGIES: Multiple that are reviewed in the chart. HOME MEDICATIONS: Reviewed. Antiepileptics as per below: 1. Depakene 250 mg/5 mL, 5 mL at 6 a.m., 5 mL at 2 p.m., 10 mL at 9 p.m. 2. Klonopin 2 mg tablets, one-half tablet at 6 a.m., 1 tablet at 2 p.m., 1 tablet at 9 p.m. 3. Zonegran 100 mg capsules, 2 capsules at 9 p.m. REVIEW OF SYSTEMS: Unobtainable, as the patient is nonverbal. PHYSICAL EXAMINATION: Vital Signs: He has been afebrile. Blood pressure 103/59, pulse 80s to 90s, respirations 18, 97% on room air. General: Mr. Lopez is lying on the bed, somewhat on his left side. His arms and legs are flexed and crossed. Neurologic: He is nonverbal. He opens his eyes to verbal stimulus and appears to regard briefly. He does not follow commands. He resists passive eye opening, but pupils appear to be equal. He has some horizontal eye movements spontaneously. Face symmetric with equal activation. Does not consistently blink to threat. LABORATORY DATA: White count is 10.8 today. Platelets 83,000 and relatively stable over the years looking back. Sodium is 135. BUN and creatinine are not elevated. Blood sugar is normal. Calcium, magnesium and phosphorus normal. AST and ALT normal. ASSESSMENT/PLAN: Static encephalopathy and longstanding epilepsy with breakthrough seizures in the setting of hospitalization for what appears to be pneumonia,etc and recent adjustment of antiseizure medications as an outpatient. The patient has chronic seizure disorder with breakthrough seizures at times. The mother is not interested in medication adjustments at this time, and I think that is perfectly reasonable in his case. I would continue with p.r.n. lorazepam if needed if frequent seizures or for prolonged seizure. I would continue his home dose antiseizure medications which were listed above. Thank you for the consultation. Will sign off now, but please contact us if we can be of further assistance. cc: Gabriella Canales MD MTDD
[2018-10-22] MEDS: ZONEGRAN PEG SCH (20:53)
[2018-10-22] MEDS: ZYVOX 600 MG/D5W 600 MG/300 ML IVPB IV SCH (20:53)
--- NOTE | 2018-10-22 21:29 | GASTROENTEROLOGY PROGRESS NOTE ---
DATE: 10/22/2018 SUBJECTIVE: I came to see the patient. He has apparently gone down to imaging. Apparently he has history of seizures overnight. Workup is in progress. ASSESSMENT AND PLAN: From gastroenterology point of view, there is not much to add at this point. I would recheck in the morning when he is back to his room, or I will be available if needed prior to that. cc: Denys Vann MD
[2018-10-23] MEDS: XOPENEX NEB INH SCH ×6 (03:21→22:50)
[2018-10-23] MEDS: KLONOPIN PO SCH ×3 (03:27→09:04)
[2018-10-23] MEDS: DEPAKENE LIQUID PEG SCH ×5 (03:28→21:06)
[2018-10-23] MEDS: CARAFATE LIQUID PEG SCH ×4 (03:28→21:05)
[2018-10-23] MEDS: ZOSYN 3.375 GM in NS 50 ML IV SCH ×4 (05:16→23:00)
[2018-10-23] MEDS: PROTONIX IV SCH ×2 (05:16→16:06)
[2018-10-23] MEDS: SODIUM CHLORIDE 0.9% INJ SCH ×2 (05:17→16:06)
[2018-10-23 06:00] LABS: AGAP 11; BUN 4 mg/dL (8-22); CALCIUM 8.9 mg/dL (8.8-10.2); CHLORIDE 103 mmol/L (98-107); COSMO 270; CREATININE 0.5 mg/dL (0.7-1.2); ESTIMATED GFR > 60; GLUCOSE 87 mg/dL (70-104); POTASSIUM 3.9 mmol/L (3.5-5.1); SODIUM 137 mmol/L (136-145); TCO2 23 mmol/L (25-35)
[2018-10-23] MEDS: PULMICORT INH SCH ×3 (07:50→19:21)
[2018-10-23] MEDS: ZYVOX 600 MG/D5W 600 MG/300 ML IVPB IV SCH ×2 (08:49→21:05)
[2018-10-23] MEDS: DULCOLAX PR SCH (08:55)
[2018-10-23] MEDS: ZANTAC LIQUID PEG SCH (08:56)
[2018-10-23] MEDS: SENNA LIQUID PEG SCH (08:58)
[2018-10-23 09:23] LABS: BASO# 0.01 X1000 (0.0-0.2); BASO% 0.1 % (0.0-0.8); EOS# 0.16 X1000 (0.0-0.7); EOS% 1.6 % (0.0-10.0); HEMATOCRIT 34.8 % (42.0-52.0); HEMOGLOBIN 11.5 g/dL (14.0-18.0); IMM GRAN# 0.03 X1000 (0.0-0.04); IMM GRAN% 0.3 % (0.0-0.5); LYMPH# 1.43 X1000 (1.2-3.4); MCH 32.7 PG (27-31); MCV 98.9 FL (81-99); MONO# 1.52 X1000 (0.11-0.59); MONO% 14.9 % (1.7-9.3); MPV 12.4 FL (7.4-10.4); NEUT# 7.08 X1000 (1.4-6.5); NEUT% 69.1 % (42.2-75.2); PLT 78 X1000 (130-400); RBC 3.52 XMIL (4.7-6.1); RDW 13.8 % (11.5-14.5); WBC 10.23 X1000 (4.8-10.8)
[2018-10-23] MEDS: MIRALAX PEG SCH (10:30)
[2018-10-23] MEDS: NS 1,000 ML IV SCH ×2 (10:33→16:15)
[2018-10-23] MEDS: ATIVAN IV PRN (10:55)
--- NOTE | 2018-10-23 12:59 | PROGRESS NOTE ---
DATE: 10/23/2018 SUBJECTIVE: The patient's father is at the bedside, reports that he had several seizures recently that he had to use the vagus nerve stimulator magnetic to stop the seizures and reports that he has a recent change in Depakote but wishes to continue with the same dosing. He had a bowel movement around 4 o'clock this morning, which apparently was a good bowel movement, and the father is wishing to address increasing the patient's tube feeding to increase nutrition. Otherwise, the patient is resting comfortably in bed and smiled when spoken to. OBJECTIVE: VITAL SIGNS: Temperature 98.9, heart rate 86, respiratory rate 14, blood pressure 112/72, O2 saturation 98% on room air. GENERAL: Mr. Goldy Lopez is a 28-year-old male with cerebral palsy and nonverbal, who is resting comfortably in bed. He is in no acute distress. CARDIOVASCULAR: S1, S2, regular rate and rhythm. No rubs, gallops, or murmurs. No lower extremity edema, +2 dorsalis and radial pulses. Negative JVD or carotid bruits. PULMONARY: Coarse anteriorly throughout, apparently is starting to have a productive cough. No accessory muscle use or work of breathing noted, tolerating room air. GASTROINTESTINAL: Soft, nontender, nondistended. GJ tube site is clean without any signs of infection. Positive bowel sounds x4. SKIN: Warm, dry, intact. LABORATORY DATA: White blood cells 10,000, hemoglobin 11, hematocrit 34, platelet count 78. Sodium 137, potassium 3.9, BUN 4, creatinine 0.5, glucose 87, calcium 8.9, magnesium 1.8. Lactate level yesterday initially was 2.9 went down to 1.4 after sepsis treatment. IMAGING: Chest, abdomen, and pelvic CT performed around 4 o'clock yesterday the , impression showed mild patchy consolidation of both lung bases most suggestive of a pneumonia and possible a form of aspiration, also shows a small rectal fecal impaction with mild thickening of the rectal and distal sigmoid colonic wall suggesting colitis, and to consider stercoral colitis. ASSESSMENT AND PLAN: 1. Sepsis with bibasilar pneumonia, possible aspiration, due to rectal fecal impaction that was small. Was treated with IV fluid bolus. The lactate dropped from 2.9 down to 1.4 after receiving IV fluids and broad-spectrum antibiotics. Cultures obtained. Vitals are stable. 2. Small rectal stool impaction. A soapsuds was performed and he had a decent sized bowel movement at 4 o'clock this morning. Will continue with current bowel regimen. 3. History of epilepsy and seizure disorder. Currently had seizures recently over the last 12 hours. Continue with p.r.n. Ativan. The patient's father, who is at the bedside, has the magnet for the vagus nerve stimulator which he has been using to stop the seizures. Last week, Depakote dosing was changed from 10 mL 3 times a day down to 5 mL in the morning, 5 mL in the afternoon, and then 10 mL at night due a Depakote level of 147. His neurologist is Dr. Peterson Calhoun at [facility]. Continues to want to follow that regimen. The patient was seen by Dr. Canales yesterday and there are no new orders. 4. Recent gastrointestinal bleed that Dr. Vann is following the patient with. Continue with the proton pump inhibitor. Monitor hemoglobin and hematocrit, which is currently 11 and 34 down from 12 and 38 yesterday. No need for transfusion unless the hemoglobin drops to 8 or less. Vital signs are currently stable. No signs of bleed at this time. This has resolved. 5. Gastroesophageal reflux disease. Again, continue with proton pump inhibitor, keep head of bed elevated. 6. Constipation with fecal impaction yesterday, bowel movement positive at 4 o'clock this morning after soapsuds enema. Continue constipation bowel regimen. 7. Protein calorie malnutrition. I believe the father is wishing to increase his tube feeds now that the bowels have improved. His last prealbumin was 20.3 on the , which is pretty good. 8. Thrombocytopenia. Platelet count went from 83 down to 78 today. He has been on Zyvox that was started yesterday, will stop that antibiotic today and monitor the platelet count. 9. Deep venous thrombosis prophylaxis, sequential compression devices. Dictated by MICHEAL Sullivan for Javier Raygoza MD cc: MICHEAL Sullivan MD
--- NOTE | 2018-10-23 14:51 | GASTROENTEROLOGY PROGRESS NOTE ---
DATE: 10/23/2018 SUBJECTIVE: The patient has his eyes open. Mother and father at the bedside. Mother states he has had better bowel movement. OBJECTIVE: Vital Signs: Temperature 98.6 degrees, pulse 87, respirations 16, blood pressure 98/51. LABORATORY DATA: Hematology: WBC 10.23, hemoglobin 11.5, hematocrit 34.8, MCV 98.9, platelets 78,000. Chemistry: Sodium 137, potassium 3.9, chloride 103, CO2 of 23, BUN 4, creatinine 0.5, glucose 87. ASSESSMENT AND PLAN: 1. Sepsis with pneumonia, on antibiotics. 2. Recent constipation/stool impaction. The patient has had bowel movements now. 3. History of seizures. Continue current management. Will continue to follow along. The patient has had better bowel movements. Continue laxative regimen. Further plans will be made according to his progress. I have discussed this case with Dr. Vann. Dictated by MICHEAL López for Denys Vann MD cc: MICHEAL Farnsworth MD
[2018-10-23] MEDS: KLONOPIN PEG SCH ×2 (15:29→21:05)
[2018-10-23] MEDS: ZONEGRAN PEG SCH (21:05)
[2018-10-24] MEDS: XOPENEX NEB INH SCH ×6 (03:23→22:56)
[2018-10-24] MEDS: DEPAKENE LIQUID PEG SCH ×3 (05:25→20:14)
[2018-10-24] MEDS: CARAFATE LIQUID PEG SCH ×4 (05:25→20:07)
[2018-10-24] MEDS: SODIUM CHLORIDE 0.9% INJ SCH ×2 (05:26→18:09)
[2018-10-24] MEDS: KLONOPIN PO SCH ×2 (05:26→06:20)
[2018-10-24] MEDS: PROTONIX IV SCH ×2 (05:26→18:09)
[2018-10-24] MEDS: ZOSYN 3.375 GM in NS 50 ML IV SCH ×4 (05:26→23:56)
[2018-10-24 05:43] LABS: BASO# 0.01 X1000 (0.0-0.2); BASO% 0.2 % (0.0-0.8); EOS# 0.33 X1000 (0.0-0.7); EOS% 6.1 % (0.0-10.0); HEMATOCRIT 35.9 % (42.0-52.0); HEMOGLOBIN 11.8 g/dL (14.0-18.0); LYMPH# 1.34 X1000 (1.2-3.4); LYMPH% 24.7 % (20.5-51.1); MCH 32.6 PG (27-31); MCHC 32.9 g/dL (33-37); MCV 99.2 FL (81-99); MONO# 0.89 X1000 (0.11-0.59); MONO% 16.4 % (1.7-9.3); MPV 11.8 FL (7.4-10.4); NEUT# 2.86 X1000 (1.4-6.5); NEUT% 52.6 % (42.2-75.2); PLT 89 X1000 (130-400); RBC 3.62 XMIL (4.7-6.1); RDW 13.8 % (11.5-14.5); WBC 5.43 X1000 (4.8-10.8)
[2018-10-24 06:10] LABS: AGAP 10; BUN 3 mg/dL (8-22); CALCIUM 9.4 mg/dL (8.8-10.2); CHLORIDE 104 mmol/L (98-107); COSMO 270; CREATININE 0.4 mg/dL (0.7-1.2); ESTIMATED GFR > 60; GLUCOSE 90 mg/dL (70-104); MAGNESIUM 1.9 mg/dL (1.5-2.7); POTASSIUM 3.9 mmol/L (3.5-5.1); SODIUM 137 mmol/L (136-145); TCO2 23 mmol/L (25-35)
[2018-10-24] MEDS: PULMICORT INH SCH ×3 (07:33→22:56)
[2018-10-24] MEDS: ZANTAC LIQUID PEG SCH ×2 (07:58→11:43)
[2018-10-24] MEDS: DULCOLAX PR SCH (08:00)
[2018-10-24] MEDS: MIRALAX PEG SCH (08:00)
[2018-10-24] MEDS: SENNA LIQUID PEG SCH (08:01)
[2018-10-24] MEDS: ZYVOX 600 MG/D5W 600 MG/300 ML IVPB IV SCH ×2 (08:27→20:08)
[2018-10-24] MEDS: NS 1,000 ML IV SCH ×2 (08:27→17:11)
--- NOTE | 2018-10-24 11:35 | PROGRESS NOTE ---
DATE: 10/24/2018 SUBJECTIVE: Mr. Goldy Lopez is resting comfortably in bed. He is alert and smiling. Both mother and father are at the bedside and states that he is still continuing to have good bowel movements and that he is feeling much better and are happy to start having his nutritional intake increased. Mother and father both also admit that he has not had as much coughing since his antibiotics were initiated and since he has been having improved bowel movements. OBJECTIVE: VITAL SIGNS: Temperature 97.4, heart rate 86, respiratory rate 16, blood pressure 97/75, O2 saturation 97% on room air. GENERAL: Ms. Goldy Lopez is a 28-year-old nonverbal cerebral palsy male, who is in no acute distress. He is finally actually starting to smile when you speak to him. PULMONARY: Clear to auscultate, bilateral breath sounds. No accessory muscle use or work of breathing noted. Tolerating room air. GASTROINTESTINAL: Soft, nontender, nondistended, positive bowel sounds x4. GJ tube without infection at the entrance site. CARDIOVASCULAR: S1, S2, regular rate and rhythm. No rubs, gallops, or murmurs. No lower extremity edema. SKIN: Warm, dry, intact. LABORATORY DATA: White blood cells 5000, hemoglobin 11, hematocrit 35, platelet count continues to be low at 89. Sodium 137, potassium 3.9, BUN 3, creatinine 0.4, glucose 90, calcium 9.4, magnesium 1.9. Depakote level 82.1. IMAGING: No recent imaging. ASSESSMENT AND PLAN: 1. Bibasilar pneumonia possibly due to aspiration. This is improving with IV antibiotics. His white count has dropped from 10 to 5. He has no fever. Less coughing. Continue Zosyn and continue with nebulizers. 2. Sepsis with the pneumonia. This has resolved. 3. Small rectal stool impaction has also resolved. After a soapsuds enema, he has been having daily bowel movements and tolerating his tube feeding. 4. Protein calorie malnutrition improving. Tube feeds are starting to be increased. Nutrition is following and also Gastroenterology is following. 5. Epilepsy and seizure disorder with recent seizures yesterday with continued p.r.n. Ativan and continued Depakote. Depakote level results this morning 82.1. He was initially seen by Neurology, who has signed off, as the family does not wish for any other current treatment. He has a vagal nerve stimulator and the father or mother will use the magnet to stop his seizures. 6. Apparently must have had a gastrointestinal bleed that Dr. Vann was following but he is now on a proton pump inhibitor and his hemoglobin and hematocrit are stable at 11 and 35 and yesterday was 11 and 34. Vitals are stable with that. 7. Gastroesophageal reflux disease. Proton pump inhibitor. 8. Constipation. Continue with current bowel regimen. 9. Thrombocytopenia. Platelet count came up from yesterday from 78 to 89. Initially, the Zyvox was going to be stopped but it was continued due to a blood culture that had gram-positive cocci but that was only 1 set. So, likely medication-induced thrombocytopenia. 10.Blood culture with gram-positive cocci only 1 set, second set is negative. Likely contamination. Awaiting for full results, but during this time we will still continue to give him Zyvox. 11.Deep venous thrombosis prophylaxis, sequential compression devices. DISPOSITION: As long as patient continues to have adequate bowel movements and we can reach nutritional goal, he can likely be discharged soon with antibiotic via PEG tube. Will monitor for any changes but right now he is improving daily, and family is also okay with this. Dictated by MICHEAL Sullivan for Javier Raygoza MD cc: MICHEAL Sullivan MD I agree with the assessment and plan of the MICHEAL. Dr. Raygoza. [facility]
[2018-10-24] MEDS: KLONOPIN PEG SCH ×2 (13:49→21:35)
[2018-10-24] MEDS: ATIVAN IV PRN ×2 (13:50→20:07)
--- NOTE | 2018-10-24 18:14 | Diag Imaging Result Doc PS360 ---
EXAM: CHEST-1 VIEW HISTORY: pneumonia TECHNIQUE: Chest single view COMPARISON: 10/19/2018 FINDINGS: The lungs are well expanded. The heart is not enlarged. The vessels are not distended. There are left basilar infiltrates. No effusion identified. IMPRESSION: Left basilar infiltrates. Electronically signed by Kwaku Burris 10/24/2018 6:11 PM
[2018-10-24] MEDS: ZONEGRAN PEG SCH (20:33)
[2018-10-25] MEDS: CARAFATE LIQUID PEG SCH ×4 (03:22→20:21)
[2018-10-25] MEDS: SODIUM CHLORIDE 0.9% INJ SCH (03:24)
[2018-10-25] MEDS: PROTONIX IV SCH ×2 (03:24→18:06)
[2018-10-25] MEDS: XOPENEX NEB INH SCH ×6 (05:32→23:42)
[2018-10-25 06:11] LABS: BASO# 0.01 X1000 (0.0-0.2); BASO% 0.3 % (0.0-0.8); EOS# 0.32 X1000 (0.0-0.7); EOS% 8.8 % (0.0-10.0); HEMOGLOBIN 12.2 g/dL (14.0-18.0); LYMPH# 1.37 X1000 (1.2-3.4); LYMPH% 37.7 % (20.5-51.1); MCH 33.2 PG (27-31); MCV 100.5 FL (81-99); MONO# 0.52 X1000 (0.11-0.59); MONO% 14.3 % (1.7-9.3); MPV 11.8 FL (7.4-10.4); NEUT# 1.41 X1000 (1.4-6.5); NEUT% 38.9 % (42.2-75.2); PLT 100 X1000 (130-400); RBC 3.68 XMIL (4.7-6.1); RDW 13.8 % (11.5-14.5); WBC 3.63 X1000 (4.8-10.8)
[2018-10-25] MEDS: ZOSYN 3.375 GM in NS 50 ML IV SCH ×3 (06:45→18:06)
[2018-10-25] MEDS: DEPAKENE LIQUID PEG SCH ×3 (06:46→20:21)
[2018-10-25] MEDS: NS 1,000 ML IV SCH ×2 (06:46→18:14)
[2018-10-25 06:49] LABS: AGAP 14; BUN 3 mg/dL (8-22); CALCIUM 8.6 mg/dL (8.8-10.2); CHLORIDE 105 mmol/L (98-107); COSMO 271; CREATININE 0.4 mg/dL (0.7-1.2); ESTIMATED GFR > 60; GLUCOSE 79 mg/dL (70-104); POTASSIUM 3.8 mmol/L (3.5-5.1); SODIUM 138 mmol/L (136-145); TCO2 19 mmol/L (25-35)
[2018-10-25] MEDS: KLONOPIN PO SCH (07:11)
[2018-10-25] MEDS: MIRALAX PEG SCH (08:03)
[2018-10-25] MEDS: DULCOLAX PR SCH (08:04)
[2018-10-25] MEDS: ZYVOX 600 MG/D5W 600 MG/300 ML IVPB IV SCH ×2 (08:05→19:51)
[2018-10-25] MEDS: ATIVAN IV PRN ×3 (08:05→21:20)
[2018-10-25] MEDS: ZANTAC LIQUID PEG SCH (08:05)
[2018-10-25] MEDS: SENNA LIQUID PEG SCH (08:06)
[2018-10-25] MEDS: THERAGRAN LIQUID PEG SCH (09:05)
[2018-10-25] MEDS: PULMICORT INH SCH ×2 (09:05→21:26)
--- NOTE | 2018-10-25 12:06 | GASTROENTEROLOGY PROGRESS NOTE ---
DATE: 10/25/2018 SUBJECTIVE: The patient is with eyes open. Mother and father at the bedside. The mother states he is having bowel movements. She states he has had less cough. He is tolerating tube feedings at 30 mL an hour. OBJECTIVE: Vital Signs: Temperature 97.5 degrees, pulse 83, respirations 16, blood pressure 129/78. General: The patient is with eyes open, in no acute distress. LABORATORY: Hematology: WBC 3.63, hemoglobin 12.2, hematocrit 37.0, MCV 100.5. Chemistry: Sodium 138, potassium 3.8, chloride 105, CO2 19, BUN 3, creatinine 0.4, glucose 79, calcium 8.6. ASSESSMENT AND PLAN: 1. Pneumonia, on antibiotics. 2. Stool impaction, has resolved. Continue current laxative regimen. 3. Protein-calorie malnutrition. The patient's tube feedings are being titrated up to goal rate. He has tolerated 30 mL an hour since yesterday. We will advanced to 40 mL an hour, which will be goal rate here at the hospital. Further plans will be made according to his progress. 4. Epilepsy and seizure disorder. Continuing on antibiotics. PLAN: Continue current medications. Continue laxative regimen. Continue PPI. We are titrating to goal rate on his tube feedings. Further plans to be made according to his progress. Will continue to follow during his hospital course and follow back in the office after discharge. The patient's mother and father voiced understanding of the plan. I have discussed this case with Dr. Vann. Dictated by MICHEAL López for Denys Vann MD cc: MICHEAL Farnsworth MD
--- NOTE | 2018-10-25 14:05 | PROGRESS NOTE ---
DATE: 10/25/2018 SUBJECTIVE: The patient is resting comfortably in bed. OBJECTIVE: Vital signs: Vital signs are as follows: Temperature 97.5 degrees, pulse 75, respirations 20, blood pressure 129/78, oxygen saturation at 100%. HEENT: Atraumatic, normocephalic. Cardiovascular system: S1, S2. Respiratory system: Has evidence of good air entry bilaterally. Abdomen: Soft, nontender. Extremities: Patient does have contractures. No evidence of edema. LABORATORY DATA: WBC is 3.63, hematocrit is 37, with a platelet count of 100. Sodium 138, potassium 3.8, chloride is 105, bicarbonate is 19. BUN is 3, creatinine 0.8. IMAGING: X-ray of the chest shows left basilar infiltrate. ASSESSMENT AND PLAN: 1. Probable aspiration pneumonia. Continue current antibiotic regimen. Follow up on patient's chest x-ray. The patient's white count is now within normal limits. 2. Gastrointestinal bleed. Stable. Maintain patient on proton pump inhibitor. Monitor hemoglobin and hematocrit. Transfuse packed red blood cells as needed. 3. Gastroesophageal reflux disease. Continue proton pump inhibitor. Keep head of bed rest raised up. 4. Status post percutaneous endoscopic gastrostomy; continue percutaneous endoscopic gastrostomy feeding. 5. Seizure disorder. Maintain patient on seizure precaution. Use Ativan on an as-needed basis for active seizures. Maintain patient on antiepileptic drugs. The patient was seen by the Neurology team, but they have signed off. 6. Thrombocytopenia. Platelet count improving. 7. Deep vein thrombosis prophylaxis. Sequential compression devices. 8. Gastrointestinal prophylaxis. Proton pump inhibitor. cc: Javier Raygoza MD
[2018-10-25] MEDS: KLONOPIN PEG SCH ×2 (14:17→20:21)
[2018-10-25] MEDS: D5 NS 1,000 ML IV SCH (19:50)
[2018-10-25] MEDS: ZONEGRAN PEG SCH (20:21)
[2018-10-26] MEDS: ZOSYN 3.375 GM in NS 50 ML IV SCH ×2 (00:18→06:10)
[2018-10-26] MEDS ORDERED: BLISTEX MEDICATED BERRY LIP BALM TOP PRN (00:39)
[2018-10-26] MEDS: ATIVAN IV PRN (02:59)
[2018-10-26] MEDS: PROTONIX IV SCH ×2 (02:59→17:45)
[2018-10-26] MEDS: SODIUM CHLORIDE 0.9% INJ SCH (02:59)
[2018-10-26] MEDS: CARAFATE LIQUID PEG SCH ×4 (03:00→20:04)
[2018-10-26] MEDS: XOPENEX NEB INH SCH ×6 (03:20→23:01)
[2018-10-26 06:04] LABS: BASO# 0.02 X1000 (0.0-0.2); BASO% 0.6 % (0.0-0.8); EOS# 0.33 X1000 (0.0-0.7); HEMATOCRIT 38.7 % (42.0-52.0); HEMOGLOBIN 12.8 g/dL (14.0-18.0); LYMPH# 1.53 X1000 (1.2-3.4); LYMPH% 46.4 % (20.5-51.1); MCH 32.5 PG (27-31); MCHC 33.1 g/dL (33-37); MCV 98.2 FL (81-99); MONO# 0.44 X1000 (0.11-0.59); MONO% 13.3 % (1.7-9.3); MPV 11.5 FL (7.4-10.4); NEUT# 0.98 X1000 (1.4-6.5); NEUT% 29.7 % (42.2-75.2); PLT 124 X1000 (130-400); RBC 3.94 XMIL (4.7-6.1); RDW 13.4 % (11.5-14.5)
[2018-10-26] MEDS: DEPAKENE LIQUID PEG SCH ×3 (06:10→20:04)
[2018-10-26] MEDS: KLONOPIN PO SCH (06:11)
[2018-10-26 06:26] LABS: AGAP 10; BUN 3 mg/dL (8-22); CALCIUM 9.4 mg/dL (8.8-10.2); CHLORIDE 107 mmol/L (98-107); COSMO 280; CREATININE 0.5 mg/dL (0.7-1.2); ESTIMATED GFR > 60; GLUCOSE 112 mg/dL (70-104); MAGNESIUM 1.8 mg/dL (1.5-2.7); POTASSIUM 3.4 mmol/L (3.5-5.1); SODIUM 142 mmol/L (136-145); TCO2 25 mmol/L (25-35)
--- NOTE | 2018-10-26 07:25 | Diag Imaging Result Doc PS360 ---
XRAY PELVIS W/HIP 2-3VW LT - 10/26/2018 INDICATION: fall TECHNIQUE: Three views COMPARISON: None FINDINGS: Bones are intact and normally aligned. Joint spaces and soft tissues are clear. IMPRESSION: Negative exam. Electronically signed by Randy Strong 10/26/2018 7:22 AM
--- NOTE | 2018-10-26 07:26 | Diag Imaging Result Doc PS360 ---
CHEST-1 VIEW - 10/26/2018 INDICATION: pneumonia COMPARISON: 10/24/2018 FINDINGS: The lungs are better expanded. The lungs are clear. Heart size is normal. No pneumothorax or pleural effusion. IMPRESSION: Negative exam. Electronically signed by Randy Strong 10/26/2018 7:24 AM
[2018-10-26] MEDS: THERAGRAN LIQUID PEG SCH (09:00)
[2018-10-26] MEDS: DULCOLAX PR SCH (09:00)
[2018-10-26] MEDS: D5 NS 1,000 ML IV SCH (09:00)
[2018-10-26] MEDS: ZANTAC LIQUID PEG SCH (09:01)
[2018-10-26] MEDS: MIRALAX PEG SCH (09:01)
[2018-10-26] MEDS: SENNA LIQUID PEG SCH (09:01)
[2018-10-26] MEDS: LEVAQUIN 500 MG/D5W 500 MG/100 ML IVPB IV SCH (09:14)
[2018-10-26] MEDS: PULMICORT INH SCH ×2 (09:44→19:00)
--- NOTE | 2018-10-26 12:30 | PROGRESS NOTE ---
DATE: 10/26/2018 SUBJECTIVE: The family notes that he seems to be tolerating his normal at home tube feedings better. He seems to be improved. Notes that he is close back to his baseline. PHYSICAL EXAMINATION: Temperature 97.5 degrees, pulse 97, respiratory 18, BP 111/54.General: Patient is in no current distress. He is lying in the bed. HEENT: Normocephalic. Neck: Supple. CARDIOVASCULAR: Regular rate. Chest: Clear. Nonlabored. No crackles, no wheezing currently. Abdomen: Soft. Extremities: He has no edema. He has muscle contractures chronically. ASSESSMENT: 1. Aspiration pneumonia with Pseudomonas in his sputum, pansensitive. We will stop Zyvox and Zosyn and change to Levaquin. We will use IV today as he has had some issues with tube feeds lately. 2. History of gastrointestinal bleed, currently on proton pump inhibitor. Hemoglobin and hematocrit is stable. 3. Leukopenia. 4. Hyponatremia, mild. 5. Cerebral palsy with a history of seizure disorder. PLAN: We will continue patient in the hospital today, change to IV Levaquin. If he tolerates, he change to Levaquin by PEG feed tomorrow and hopefully discharge home. His hemoglobin and hematocrit have remained stable. He is on his home medications and home tube feeds. cc: Job Rollins MD
[2018-10-26] MEDS: KLONOPIN PEG SCH ×2 (13:15→20:03)
--- NOTE | 2018-10-26 13:36 | GASTROENTEROLOGY PROGRESS NOTE ---
DATE: 10/26/2018 SUBJECTIVE: The patient was resting comfortably. Because of his condition he cannot verbalize any complaints. His parents were present at the bedside. The mother tells me that his PEG tube did get clogged last night and fortunately, after quite a bit of work she was able to unclog it and he, indeed, did receive his medication as well as his tube feeding. She denied any GI symptoms now. He has been tolerating his tube feeding very well. His cough has improved and his bowel movements have regularized. Today, he did have a chest x-ray which did not show any evidence of pneumonia. OBJECTIVE: Vitals: Temperature 97.6 degrees, pulse 77 per minute, regular, breathing air of 16, blood pressure was 98/65. Abdomen: The PEG site is clean and dry. Abdomen is otherwise soft, nontender. Bowel sounds are audible. PLAN: The plan would be to continue to titrate his tube feeding up to the goal while we tread slowly. The mother has mentioned that the feedings that he is getting are thicker than the ones that she is used to using at home and apparently she blames that to be the cause. Unfortunately, he is still getting the same tube feeding, that is Jevity 1.5, but apparently to her it appears to be thicker. She has brought the feeding from home. I am not sure whether we can utilize that instead of the feeding that he gets from the hospital. She tells me that the machine usually does flush the tube automatically every hour or so, so we need to be vigilant and do flush it after the feeding as well. The rest of the treatment for reflux and constipation to continue the same, and we continue to treat him for his other medical conditions, and will follow along with the team while he is in the hospital. cc: Denys Vann MD
[2018-10-26] MEDS: ZONEGRAN PEG SCH (20:03)
[2018-10-27] MEDS: XOPENEX NEB INH SCH ×6 (03:08→23:00)
[2018-10-27] MEDS: CARAFATE LIQUID PEG SCH ×5 (03:58→20:44)
[2018-10-27] MEDS: PROTONIX IV SCH ×2 (04:22→17:49)
[2018-10-27] MEDS: D5 NS 1,000 ML IV SCH ×2 (04:22→17:48)
[2018-10-27] MEDS: SODIUM CHLORIDE 0.9% INJ SCH ×2 (04:22→17:49)
[2018-10-27 06:05] LABS: BASO# 0.02 X1000 (0.0-0.2); BASO% 0.6 % (0.0-0.8); EOS# 0.55 X1000 (0.0-0.7); EOS% 15.4 % (0.0-10.0); HEMATOCRIT 40.8 % (42.0-52.0); HEMOGLOBIN 13.2 g/dL (14.0-18.0); LYMPH# 1.62 X1000 (1.2-3.4); LYMPH% 45.3 % (20.5-51.1); MCHC 32.4 g/dL (33-37); MCV 98.8 FL (81-99); MONO# 0.34 X1000 (0.11-0.59); MONO% 9.5 % (1.7-9.3); MPV 10.9 FL (7.4-10.4); NEUT# 1.05 X1000 (1.4-6.5); NEUT% 29.2 % (42.2-75.2); PLT 143 X1000 (130-400); RBC 4.13 XMIL (4.7-6.1); RDW 13.6 % (11.5-14.5); WBC 3.58 X1000 (4.8-10.8)
[2018-10-27] MEDS: KLONOPIN PO SCH (06:36)
[2018-10-27] MEDS: DEPAKENE LIQUID PEG SCH ×3 (06:36→20:44)
[2018-10-27] MEDS: PULMICORT INH SCH ×2 (09:05→19:20)
[2018-10-27] MEDS: THERAGRAN LIQUID PEG SCH (09:26)
[2018-10-27] MEDS: DULCOLAX PR SCH (09:26)
[2018-10-27] MEDS: MIRALAX PEG SCH (09:27)
[2018-10-27] MEDS: SENNA LIQUID PEG SCH (09:27)
[2018-10-27] MEDS: LEVAQUIN 500 MG/D5W 500 MG/100 ML IVPB IV SCH (09:28)
[2018-10-27] MEDS: ZANTAC LIQUID PEG SCH (10:23)
--- NOTE | 2018-10-27 13:19 | PROGRESS NOTE ---
DATE: 10/27/2018 SUBJECTIVE: Patient is resting in bed. Family present in the room. OBJECTIVE: Vital Signs: Temperature 97.7 degrees, pulse 69, respirations 18, blood pressure 105/49, oxygen saturation is 96%. HEENT: Atraumatic, normocephalic. Cardiovascular System: S1 and S2. Respiratory System: Has evidence of good air entry bilaterally. Abdomen: Soft, nontender. No masses felt. Extremities: The patient does have contractures. No evidence of significant edema in the lower extremities. Central Nervous System: The patient is awake. Labs: WBC 3.54, hematocrit 40.8, with a platelet count of 143,000. X-ray chest that was on 10/26/2018 shows lungs are better expanded. His lungs are clear. Sputum culture positive for Pseudomonas aeruginosa and this is sensitive to Levaquin. ASSESSMENT AND PLAN: 1. Pseudomonas pneumonia. Continue antibiotic regimen. 2. Gastrointestinal bleed. Stable. Maintain patient on proton pump inhibitor. Monitor hemoglobin and hematocrit. Transfuse packed red blood cells as needed. 3. Gastroesophageal reflux disease. Continue proton pump inhibitor. Keep head of bed raised. 4. Status post percutaneous endoscopic gastrostomy. Continue percutaneous endoscopic gastrostomy feeding. 5. Seizure disorder. Maintain patient on seizure precautions. Continue antiepileptic medications. 6. Thrombocytopenia. Platelet count improving. 7. Deep vein thrombosis prophylaxis. Sequential compression devices. 8. Gastrointestinal prophylaxis. Proton pump inhibitor. 9. Disposition. Possible discharge home today. cc: Javier Raygoza MD
[2018-10-27 13:56] LABS: INR 1.07; PROTIME 14.8 Seconds (11.0-16.0)
[2018-10-27] MEDS: KLONOPIN PEG SCH ×2 (13:56→20:44)
--- NOTE | 2018-10-27 14:12 | GASTROENTEROLOGY PROGRESS NOTE ---
DATE: 10/27/2018 SUBJECTIVE: Patient has eyes open. His mother is at the bedside. She states she was able to get his tube unclogged yesterday. She states his tube feeding here in the hospital is thicker than what she has at home. She has brought in some of her feeding to use. Microbiology grew out pseudomonas in the sputum. He is on antibiotics. I believe there are plans for him to go home on IV antibiotics. OBJECTIVE: Vital Signs: Temperature 97.7 degrees, pulse 72, respirations 16, blood pressure 105/49. The patient is awake with eyes open. Laboratory: Hematology: WBC 3.58, hemoglobin 13.2, hematocrit of 40.8, MCV 98.8. ASSESSMENT AND PLAN: 1. Pseudomonas pneumonia, on antibiotics. 2. Nutritional requirements with percutaneous endoscopic gastrostomy tube feedings infusing. We will try to increase to goal rate, 40 mL an hour, while he is in the hospital. Adjust as needed. 3. Recent gastrointestinal bleed. Hemoglobin and hematocrit are stable. 4. Seizure disorder. Continue current medications. We will continue to follow during his hospital course and further plans will be made according to his progress. I have discussed this case with Dr. Vann. Dictated by MICHEAL López for Denys Vann MD cc: MICHEAL Farnsworth MD [facility]
[2018-10-27] MEDS ORDERED: NS 250 ML ONE (14:26)
[2018-10-27] MEDS: ZONEGRAN PEG SCH (20:44)
[2018-10-28] MEDS: CARAFATE LIQUID PEG SCH ×2 (03:16→08:06)
[2018-10-28] MEDS: PROTONIX IV SCH (03:16)
[2018-10-28] MEDS: SODIUM CHLORIDE 0.9% INJ SCH (03:16)
[2018-10-28] MEDS: XOPENEX NEB INH SCH ×2 (03:26→07:29)
[2018-10-28] MEDS: KLONOPIN PO SCH (05:48)
[2018-10-28] MEDS: DEPAKENE LIQUID PEG SCH (05:48)
[2018-10-28 06:37] LABS: BASO# 0.02 X1000 (0.0-0.2); BASO% 0.4 % (0.0-0.8); EOS# 0.46 X1000 (0.0-0.7); EOS% 9.1 % (0.0-10.0); HEMATOCRIT 37.5 % (42.0-52.0); HEMOGLOBIN 12.2 g/dL (14.0-18.0); LYMPH# 1.92 X1000 (1.2-3.4); LYMPH% 38.2 % (20.5-51.1); MCH 32.2 PG (27-31); MCHC 32.5 g/dL (33-37); MCV 98.9 FL (81-99); MONO# 0.64 X1000 (0.11-0.59); MONO% 12.7 % (1.7-9.3); MPV 11.4 FL (7.4-10.4); NEUT# 1.99 X1000 (1.4-6.5); NEUT% 39.6 % (42.2-75.2); PLT 136 X1000 (130-400); RBC 3.79 XMIL (4.7-6.1); RDW 13.5 % (11.5-14.5); WBC 5.03 X1000 (4.8-10.8)
[2018-10-28] MEDS: PULMICORT INH SCH (07:29)
[2018-10-28] MEDS: DULCOLAX PR SCH (08:06)
[2018-10-28] MEDS: MIRALAX PEG SCH (08:07)
[2018-10-28] MEDS: SENNA LIQUID PEG SCH (08:08)
[2018-10-28] MEDS: THERAGRAN LIQUID PEG SCH (08:15)
[2018-10-28] MEDS: ZANTAC LIQUID PEG SCH (08:16)
[2018-10-28 08:22] VITALS: BP 107/71
[2018-10-28] MEDS ORDERED: LEVAQUIN PO SCH (09:00)
--- NOTE | 2018-12-03 15:33 | DISCHARGE SUMMARY ---
ADMISSION DATE: 10/19/2018 DISCHARGE DATE: 10/28/2018 PRINCIPAL DIAGNOSIS: Gastrointestinal bleed. SECONDARY DIAGNOSES: 1. Pseudomonas pneumonia. 2. Gastroesophageal reflux disease, status post percutaneous endoscopic gastrostomy. 3. Thrombocytopenia. 4. History of cerebral palsy. 5. History of multiple upper respiratory infections. 6. Neurogenic bladder. DISCHARGE MEDICATIONS: Include the following: Metoclopramide 10 mg 3 times a day, sucralfate 1 g via PEG every 6 hours, Zosyn 3.375 g IV q .8 hours as directed, Budesonide nebulized twice a day, Albuterol nebs 4 times a day, senna liquid 10 mL via PEG in the morning, Klonopin 2 mg via PEG twice a day, Dulcolax 10 mg rectally, Zonegran 200 mg via PEG a At bedtime, Atrovent neb 4 times a day, ranitidine 20 miles via the PEG daily, valproic acid 10 mL 3 times a day. CONSULTATIONS DONE DURING THIS HOSPITAL STAY: 1. Gastroenterology, Dr. Jimenez. 2. Neurology, Dr. Canales. PROCEDURES DONE DURING THIS HOSPITAL STAY: Chest, abdomen and pelvis CT 10/22/2018. HOSPITAL COURSE: Mr. Goldy Lopez is a 28-year-old male, who has a history of cerebral palsy and was admitted to the hospital because of apparent GI bleed. The patient was started on Protonix, as well as Carafate, and was seen by the GI team. The patient developed aspiration pneumonia during the course of the hospital stay, and sputum culture came back positive for Pseudomonas aeruginosa. The patient was subsequently discharged home 10/28 and 10/29 to complete antibiotics as an outpatient. FOLLOW-UP RECOMMENDED: Will be with primary care physician, Dr. Barillas, Dr. Vann of GI and Dr. Canales, Neurology. cc: Javier Raygoza MD
== END 2018-10-28 10:00 | disposition home health service (06) | DRG 377 ==
LOC: SUPCPDRO → ED 08:57 → 4N 14:36 → SUATTDRO 14:36
PROVIDERS: ATTEND Internal Medicine
CPT/HCPCS: 36569; 71010; 71045; 71260; 73502; 74019; 74020; 74177; 80048; 80053; 80164; 80165; 80203; 80299; 83605; 83735; 84100; 84134; 85025; 85610; 87040; 87070; 87077; 87186; 87205; 89220; 94640; 94761; 99285; 99999; A9270; C1751; C9113; J1200; J1956; J2020; J2060; J2543; J7030; J7042; J7050; Q9967; S0164

== ENCOUNTER 2018-11-03 21:53 | Inpatient (IN) ==
[2018-11-03 23:04] LABS: BASO# 0.03 X1000 (0.0-0.2); BASO% 0.5 % (0.0-0.8); EOS# 0.49 X1000 (0.0-0.7); EOS% 7.7 % (0.0-10.0); HEMATOCRIT 40.6 % (42.0-52.0); HEMOGLOBIN 13.6 g/dL (14.0-18.0); LYMPH# 2.61 X1000 (1.2-3.4); MCH 32.4 PG (27-31); MCHC 33.5 g/dL (33-37); MCV 96.7 FL (81-99); MONO# 0.84 X1000 (0.11-0.59); MONO% 13.2 % (1.7-9.3); MPV 11.1 FL (7.4-10.4); NEUT% 37.6 % (42.2-75.2); PLT 123 X1000 (130-400); RDW 13.9 % (11.5-14.5); WBC 6.37 X1000 (4.8-10.8)
[2018-11-03 23:11] LABS: INR 0.97; PROTIME 13.7 Seconds (11.0-16.0)
[2018-11-03 23:12] LABS: PTT 25.6 Seconds (22.3-41.8)
[2018-11-03 23:25] LABS: AGAP 13; ALB/GLOB RATIO 1.4; ALBUMIN 4.3 g/dL (3.5-5.0); ALKALINE PHOSPHATASE 61 U/L (32-122); BUN 6 mg/dL (8-22); CALCIUM 9.2 mg/dL (8.8-10.2); CHLORIDE 101 mmol/L (98-107); CK PROFILE 63 U/L (24-204); COSMO 273; CREATININE 0.4 mg/dL (0.7-1.2); ESTIMATED GFR > 60; GLUCOSE 96 mg/dL (70-104); GOT 19 U/L (10-34); GPT 10 U/L (10-44); POTASSIUM 3.9 mmol/L (3.5-5.1); SODIUM 138 mmol/L (136-145); TCO2 24 mmol/L (25-35); TOTAL BILIRUBIN 0.18 mg/dL (0.20-1.00); TOTAL PROTEIN 7.4 g/dL (6.3-8.3)
[2018-11-03 23:57] LABS: URINE SOURCE CATH
[2018-11-04 00:18] LABS: BILIRUBIN URINE NEGATIVE (NEGATIVE); BLOOD URINE NEGATIVE (NEGATIVE); COLOR YELLOW; GLUCOSE URINE NEGATIVE (NEGATIVE); KETONE URINE NEGATIVE (NEGATIVE); LEUKOCYTES URINE NEGATIVE (NEGATIVE); NITRITE URINE NEGATIVE (NEGATIVE); PH URINE 8.5; PROTEIN URINE NEGATIVE (NEGATIVE); SP GRAVITY URINE 1.009; TURBIDITY URINE CLEAR (CLEAR); UR EPITHELIAL CELLS <10 /HPF (<10); URINE BACTERIA NEGATIVE /HPF; URINE RBC <10 /HPF (<10); URINE WBC <10 /HPF (<10); UROBILINOGEN URINE NORMAL (NORMAL)
--- NOTE | 2018-11-04 01:03 | HISTORY AND PHYSICAL ---
CHIEF COMPLAINT: Cough, congestion for the past day or so. HISTORY OF PRESENTING ILLNESS: A 28-year-old male with a history of cerebral palsy, epilepsy, neurogenic bladder, who recently had been treated for pneumonia with IV antibiotics through PICC. Was brought to the emergency department because mother felt that the patient was getting more congested and coughing. He was evaluated in the emergency department and due to his presenting symptoms it was thought that we will place him for observation for further evaluation. The patient's mother was also concerned about the PICC line and she was concerned that it was infected because it seemed little bit bloody. Not much history could be obtained from patient because he is noncommunicative and remaining history is obtained from mother and previous records. PAST MEDICAL HISTORY: Includes cerebral palsy, epilepsy, neurogenic bladder. PAST SURGICAL HISTORY: Cholecystectomy, bowel surgery, PEG tube, right clavicle repair, brain stimulator for seizures, tonsillectomy, eye surgery. ALLERGIES: Ephedrine, pseudoephedrine and vancomycin. CURRENT MEDICATIONS: Include albuterol nebulizers 4 times a day, Pulmicort 1 nebulizer b.i.d., Klonopin 2 mg via PEG b.i.d. and 1 mg at night, Reglan 10 mg via PEG t.i.d., Zantac 20 mL via PEG daily, valproic acid 10 mL via PEG t.i.d., Zonegran 200 mg via PEG at bedtime. SOCIAL HISTORY: No history of smoking, alcohol or illicit drug use. He lives with his mother. He is full assist. FAMILY HISTORY: No history of coronary artery disease. REVIEW OF SYSTEMS: Unable to obtain. PHYSICAL EXAMINATION: GENERAL: The patient is resting comfortably. VITAL SIGNS: Temperature 97.9 degrees, pulse 80, respirations 20, blood pressure 120/88. HEENT: Atraumatic, normocephalic. NECK: No masses. CHEST: Rhonchi. CARDIOVASCULAR: Regular rate and rhythm. ABDOMEN: Soft, positive bowel sounds. EXTREMITIES: No edema. NEUROLOGIC: He is awake and arousable. GENITOURINARY: No bladder distention. SKIN: Warm. LABORATORIES AND STUDIES: WBC 6.37, hemoglobin 13.6, hematocrit 40.6, platelets 123,000. Sodium 138, potassium 3.9, chloride 101, CO2 is 24, BUN is 6, creatinine 0.4, glucose is 96. ASSESSMENT: This is a 28-year-old male with a history of cerebral palsy, epilepsy and neurogenic bladder who is basically bed bound and full assist. He was brought to the emergency department due to his mother being concerned that he was coughing. He was recently treated with pneumonia with antibiotics through his PICC line. She was also concerned if the PICC was infected due to some bloody area around the gauze. Due to patient's presenting symptoms, it was thought that we will place him for observation for further evaluation and management. 1. Cough/bronchitis. 2. Status post recent treatment for pneumonia. 3. Epilepsy. 4. Concerns over peripherally inserted central catheter line. 5. Cerebral palsy. PLAN: 1. Admit patient to medical floor with telemetry. 2. We will continue with DuoNebs p.r.n. 3. Restart other home medications. 4. Put patient on seizure precautions. 5. We will continue to follow, and reassess and make further recommendation based on patient's clinical course. cc: Jd Franklin MD MTDD
--- NOTE | 2018-11-04 01:20 | PROVIDER DOCUMENTATION ---
This chart was entered by Aisha Bautista Scribe, acting as scribe for Ismael Nation MD. HPI-General Adult - General Chief Complaint: Return/Recheck Stated Complaint: dx pna not better Time Seen by Provider: 11/03/18 22:10 Source: family Allergies/Adverse Reactions: Patient Allergies Allergy/AdvReac Type Severity Reaction Status Date / Time ephedrine [Ephedrine] Allergy Severe lower Verified 11/01/18 16:14 threshold for seizures glycopyrrolate Allergy Severe "dries up Verified 11/01/18 16:14 his urine" pseudoephedrine Allergy Severe lower Verified 11/01/18 16:14 threshold for seizures vancomycin Allergy Intermediate RASH Verified 11/01/18 16:14 fluticasone propionate * Allergy Mild nose bleed Verified 11/01/18 16:14 [From Flonase] hydrocodone [Hydrocodone] Allergy Mild behavioral Verified 11/01/18 16:14 problems latex Allergy Mild HIVES Verified 11/01/18 16:14 meperidine HCl * Allergy Unknown Lowers Verified 11/01/18 16:14 [From Demerol] seizure threshold aloe vera Allergy RASH Verified 11/01/18 16:14 tramadol HCl * [From Ultram] Allergy Lowers Verified 11/01/18 16:14 seizure threshold coban Allergy Mild HIVES Uncoded 11/01/18 16:14 Home Medications: Home Medication List Medication Instructions Recorded Confirmed Last Taken Type Budesonide [Pulmicort] 1 dose NEB BID 08/21/16 10/19/18 09/08/18 History Albuterol [Albuterol Neb] 1 inh NEB [id number] 03/30/17 10/19/18 09/08/18 History Clonazepam [Klonopin] 2 mg PEG BID 03/30/17 10/20/18 09/09/18 04:00 History Sennosides [Senna Liquid] 10 ml PEG QAM 03/30/17 10/19/18 09/08/18 History Bisacodyl [Dulcolax] 10 mg AZ DAILY 08/02/17 10/19/18 09/08/18 History Zonisamide [Zonegran] 200 mg PEG QHS 02/11/18 10/19/18 09/08/18 History Ipratropium [place] Neb [Atrovent 1 dose NEB 4XDAY 09/04/18 10/19/18 09/08/18 History Neb] Metoclopramide [Reglan Liquid] 10 mg PO TID #30 [facility] [place]18 Unknown Rx Ranitidine [Zantac Liquid] 20 ml PEG DAILY 10/19/18 10/19/18 Unknown History Valproic Acid [Depakene Liquid] 10 ml PEG TID 10/19/18 10/19/18 Unknown History Clonazepam [Klonopin] 1 mg PEG AC 10/20/18 10/20/18 Unknown History Sucralfate [Carafate Liquid] 1 gm PEG Q6HR [facility] [place]27[place]18 Unknown Rx - History of Present Illness -Gen Adult Nature of Presenting Problems: 28 yom presents w/mother w/co pt mother is historian due to cerebral palsy. pt was admitted to [facility] october 19 and picc line was placed on 10-28 for pneumonia and picc line in right arm has blood underneath it and looks to be infected. mother administers tobramycin i picc line and did last dose today. pt still has cough and is running fever. Review of Systems - Adult - REVIEW OF SYSTEMS - ADULT Constitutional: reports: see HPI, fever (no fever in er, 97.9) Eyes: reports: no symptoms reported Ears, Nose, Mouth & Throat: reports: no symptoms reported Cardiovascular: reports: no symptoms reported Respiratory: reports: see HPI, cough, wheezing. denies: dyspnea on exertion, hemoptysis, pleurisy Gastrointestinal: reports: no symptoms reported Genitourinary: reports: no symptoms reported Musculoskeletal: reports: no symptoms reported Integumentary: reports: see HPI, other (picc line infection). denies: mole changes, nail changes, rash Neurological: reports: no symptoms reported Psychiatric: reports: no symptoms reported Endocrine: reports: no symptoms reported Hematologic/Lymphatic: reports: no symptoms reported Allergic/Immunologic: reports: no symptoms reported All Other Systems: Reviewed and Negative Past History - Adult - PAST MEDICAL HISTORY-ADULT Review of Records: reports: Old Records Reviewed, Nursing Assessment Review, Medications Reviewed, Social history reviewed & non-contributory. Major Childhood Illnesses: reports: denies history Cardiovascular: reports: denies history Respiratory: reports: bronchitis (frequent staph bronchitis), pneumonia (recurring aspiration) Gastrointestinal: reports: GERD, GI bleed (AVM), obstruction, other (constipation, neurognic bowel and bladder) Obstetrical/Gynecological: reports: denies history Genitourinary: reports: retention (mother caths patient daily), other (neurogenic bladder) Musculoskeletal: reports: other (scoliosis/ contractures of le's and upper extremities) Neurological: reports: Seizures/Epilepsy, other (cerebral palsy) Psychiatric: reports: denies history Endocrine/Immune: reports: thyroid disorder (hypothyroid) Other Conditions: reports: MRSA, other (VRE) - PRIOR SURGERIES/PROCEDURES Surgical/Procedure History: reports: cholecystectomy, tonsillectomy, bowel surgery (PEG tube), orthopedic (extremity) (clavicle repair), other (nerve stimiulator placement/ VNS to control seizures; cerebral palsy; Vijay syndrom hx of) - PRIOR HOSPITALIZATIONS Prior Hospitalizations: reports: for similar symptoms - IMMUNIZATION STATUS Childhood Immunizations: See Nurse Assessment Flu Vaccine: See Nurse Assessment - FAMILY HISTORY Family History: reviewed, not pertinent - SOCIAL HISTORY Smoking: non-smoker Substance Use: none/never Physical Exam-General - PHYSICAL EXAM-ADULT Initial Vital Signs Reviewed: Yes - CONSTITUTIONAL General Appearance: appears well, alert, no apparent distress, thin, other (hx cerebral palsy). negative: cachetic, obese, anxious - EYES Eyes: PERRL/EOMI - HEAD, EARS, NOSE, MOUTH & THROAT HENMT: normocephalic/atraumatic, moist mucous membranes, normal ENT inspection - NECK Neck: non-tender, full range of motion, supple, normal inspection - RESPIRATORY Respiratory: chest non-tender, decreased breath sounds, crackles, rales, rhonchi , wheezing, dull on percussion. negative: lungs clear, normal breath sounds, r espiratory distress, retractions - CARDIOVASCULAR Cardiovascular: normal peripheral pulses, regular rate, rhythm - GASTROINTESTINAL (ABDOMEN) Abdominal Exam: normal bowel sounds, non tender, soft - LYMPHATIC Lymphatic: no adenopathy - MUSCULOSKELETAL Back Exam: normal inspection, no CVA tenderness, no vertebral tenderness Extremity: normal range of motion, non-tender, normal inspection Peripheral Pulses: radial (R): 2+, radial (L): 2+ - SKIN Integumentary: normal color, normal turgor, warm/dry, other (picc line in rt arm bleeding) - NEUROLOGIC Neurologic: manager [employer] II-XII nml as tested, grossly normal, no motor/sensory deficits - PSYCHIATRIC Psych/Mental Status: disoriented x 3, other (pt has hx of cerebral palsy). negative: depressed affect, paranoid, tearful Progress - PLAN OF CARE/RESULTS Progress/Plan/Lab Results: Vital Signs - 8 hr 11/03/18 22:04 Temperature 97.9 F Pulse Rate 80 Respiratory Rate 20 Blood Pressure 120/88 O2 Sat by Pulse Oximetry 94 L Orders Category Date Time Status Cardiac Monitoring DIRECTED Care 11/03/18 22:09 Active IV Insertion ORDERED Care 11/03/18 22:09 Active Notify MD of + Sepsis Screen NOW Care 11/03/18 22:09 Active Notify Physician As Ordered Care 11/03/18 22:09 Active CHEST-1 VIEW [RAD] Stat Exams 11/03/18 22:09 Ordered BLOOD CULTURE [BLDCUL] Stat Lab 11/03/18 22:09 Uncollected CBC WITH DIFF [HEME] Stat Lab 11/03/18 22:09 Uncollected CK PROFILE [SP CHEM] Stat Lab 11/03/18 22:09 Uncollected COMPREHENSIVE METABOLIC PANEL [CHEM] Stat Lab 11/03/18 22:09 Uncollected LACTATE, PLASMA [CHEM] Lab 11/03/18 22:15 Uncollected LACTATE, PLASMA [CHEM] Lab 11/04/18 01:15 Uncollected LACTATE, PLASMA [CHEM] Lab 11/04/18 04:15 Uncollected PROTIME WITH INR [COAG] Stat Lab 11/03/18 22:09 Uncollected PTT [COAG] Stat Lab 11/03/18 22:09 Uncollected TROPONIN T Stat Lab 11/03/18 22:09 Uncollected URINALYSIS W/POSS RFLX CULT [URINALYSIS] Stat Lab 11/03/18 22:09 Uncollected Oxygen Device Stat Oth 11/03/18 22:09 Active A/P: infected picc line in R upper arm. will admit for observation. Vitals stable. Result Diagrams: 11/03/18 22:50 11/03/18 22:50 Departure - Departure Date of Disposition Decision: 11/04/18 Time of Disposition Decision: : DIAGNOSIS: PICC line infection, Pseudomonas infection Disposition: ADMITTED INPATIENT 09 Certified Medical Emergency: Emergent Condition: Stable Additional Freetext Instructions: We have examined and treated you today on an emergency basis only. This was not a substitute for, or an effort to provide, complete medical care. In most cases, you must let your doctor check you again. Tell your doctor about any new or lasting problems. We cannot recognize and tr eat all injuries or illnesses in one Emergency Department visit. If you had special tests, such as X-rays or CT scans, will be reviewed by radiologist and will call you if there are any new suggestions Follow up with primary care provider in 1 to 2 days if no improvement. If you do not have a primary care provider, you need to choose one as soon as possible. Take medicines as prescribed. Monitor for any side effects or adverse events from medications. If any side effect, adverse event or rash develops, or if you suspect any other adverse reaction to the medication, then discontinue the medic ation immediately and contact clinic /PCP or go to the nearest ER. Narcotic meds / sedative meds instruction - patent advised not to drive, operate any machinery or go into water after taking meds as it may impair mental ability to react to the situation in an appropriate manner. Continue other current medicines. Follow up with PCP within 24-48 hours, or sooner if symptoms worsen or fail to improve. Patient / guardian verbalizes understanding of treatment plan, medication, and side effects and agrees with treatment plan. Patient leaves ER in stable condition and ambulatory state. Return to ER as needed. Discharge instructions reviewed verbally and given to patient in written form. Follow up with primary care provider. Referrals and Follow-Ups: Maria L Enciso MD [Primary Care Provider] - - Critical Care Note This patient required my direct & personal management of CC.: No Attestation - Physician/ MOLLY Attestation Patient care was provided by Advanced Practice Provider:: No The physician spent face to face time with patient:: Yes Advanced Practice Provider documentation review:: Supervising physician onsite and consulted in the evaluation and care of this patient. The physician did have a face to face encounter with the patient. This chart was documented by the indicated scribe, (Aisha Bautista Scribe) and accurately reflects the services I performed and decisions made by me, Ismael Kumari MD, as attested by the provider's signature.
[2018-11-04] MEDS: DUONEB (A & A) INH SCH ×6 (03:55→22:58)
[2018-11-04] MEDS: DEPAKENE LIQUID PEG SCH ×3 (06:12→20:14)
[2018-11-04] MEDS: KLONOPIN PEG SCH ×3 (06:12→20:14)
--- NOTE | 2018-11-04 06:45 | Diag Imaging Result Doc PS360 ---
CHEST-1 VIEW - 11/03/2018 INDICATION: cough COMPARISON: 10/26/2018 FINDINGS: Stable low lung volumes. No focal infiltrates, pneumothorax, or pleural effusion. Heart size is normal. IMPRESSION: No acute disease. Electronically signed by Randy Strong 11/04/2018 6:43 AM
[2018-11-04] MEDS: PULMICORT INH SCH ×2 (07:27→19:23)
[2018-11-04] MEDS: ZANTAC LIQUID PEG SCH ×2 (08:46→20:15)
[2018-11-04] MEDS: SENNA LIQUID PEG SCH (08:46)
[2018-11-04] MEDS: DULCOLAX PR SCH (08:47)
[2018-11-04] MEDS: MUCOMYST 20% INH SCH ×3 (12:51→19:23)
--- NOTE | 2018-11-04 13:13 | PROGRESS NOTE ---
DATE: 11/04/2018 SUBJECTIVE: Mr. Goldy Lopez is a 28-year-old nonverbal, cerebral palsy male patient who is resting comfortably in the bed. He is alert. There is an obvious coarse sounding cough with coarse rhonchi on auscultation. He appears to be happy, as he is smiling. The mother and father are both at the bedside, and their main concerns are the cough that is currently nonproductive, the patient's PICC line site, his antibiotic therapy, his nutritional feedings, and so those are being addressed. OBJECTIVE: Vital signs: Temperature is 97.7, heart rate 85, respiratory rate 15, blood pressure 121/76, O2 saturation is 96% on 2 L nasal cannula. General: Mr. Goldy Lopez is a 28-year-old male. He is in no acute distress. Cardiovascular: S1, S2. Regular rate and rhythm. No rubs, gallops or murmurs. No lower extremity edema. Plus 2 dorsalis and pedal pulses. Pulmonary: Bilateral breath sounds are coarse to auscultation anteriorly. Tolerating 2 L of nasal cannula. He has a nonproductive wet cough. GI: Peg tube without signs or symptoms of infection. Positive bowel sounds x4. Soft, nontender. Extremities: He has contractions. He has spontaneous movements. Skin: Warm, dry, intact. Right arm upper arm PICC line site dressing is moist and needs to be changed. DIAGNOSTIC DATA: White blood cells 6000, hemoglobin 13, hematocrit 40, platelet count is 123. Sodium is 138, potassium 3.9, BUN is 6, creatinine 0.4, glucose 96, calcium 9.2, bilirubin is 0.18, AST is 19, ALT is 10. CK is 63. Troponin less than 0.01. Albumin 4.3. Serum lactate is 0.8. Urinalysis negative. IMAGING: Chest x-ray on admit did not show any acute disease. ASSESSMENT AND PLAN: 1. Nonproductive cough. Bronchitis with recent treatment for pneumonia. Apparently he is supposed to have his last dose of Zosyn today but missed treatment since yesterday evening, which we will resume. Chest x-ray does not show any signs of pneumonia. The white blood cell count is normal, and he has no fever. He is not tachycardic. He is not in respiratory distress, although he does have coarse rhonchi, and the cough is very coarse and wet. He is getting nebulizers, albuterol and Atrovent every 4 hours, and Pulmicort every 12 hours, so we will add Mucinex every 12 nebulized and guaifenesin every 4 hours. The patient is to be NT suctioned as needed and will also get a sputum culture. 2. Epilepsy. He has a vagal nerve stimulator and will also continue his antiepileptic drugs. 3. Severe protein calorie malnutrition with anorexia secondary to cerebral palsy. We will resume his home nutritional support and consult Nutrition. Currently Jevity 1.5 at 30 with water flush at 40. We will increase per nutritional guide that he has from home. 4. Family concerned about right upper arm PICC line and is requesting for that to be discontinued prior to discharge home. 5. Cerebral palsy. He is nonverbal but will make facial expressions according to how he feels, and currently he is smiling. 6. Thrombocytopenia. Platelet count is 123. It was felt to be medication induced on his last admission. We will monitor it closely. Dictated by MICHEAL Sullivan for Rivas Young MD cc: MICHEAL Sullivan MD
--- NOTE | 2018-11-04 13:36 | PROGRESS NOTE ---
DATE: 11/04/2018 ADDENDUM REPORT The patient seen and examined by me face to face. Laboratory, vital signs, and images were reviewed. WBC is normal at 6.3. No reported fever or chills, but he has been coughing and having coarse breath sounds with some rhonchi bilaterally. Since this patient has cerebral palsy, the possibility of having an aspiration pneumonia is high. He will be placed on antibiotics, and we will place this patient on Mucomyst as well. He has a PICC line placed on his right arm that does not look infected. We will change the dressing, though. I will ask for CPT and I will put him back on his diet. As per the family he has been having bowel movements, but not today. We will continue with most of his home medications. No significant changes on his physical exam except for the respiratory findings. Case has been discussed with the family, they agree with the management, and we will pull out the PICC line upon discharge. I agree with the rest of the nurse practitioner's assessment and plan. cc: Rivas Young MD
[2018-11-04] MEDS: ZOSYN 3.375 GM in NS 50 ML IV SCH ×2 (14:14→20:14)
[2018-11-04] MEDS: ROBITUSSIN PO SCH ×3 (14:14→20:15)
[2018-11-04] MEDS: ZONEGRAN PEG SCH (20:14)
[2018-11-05] MEDS: ROBITUSSIN PO SCH ×6 (01:42→20:53)
[2018-11-05] MEDS: ZOSYN 3.375 GM in NS 50 ML IV SCH ×4 (01:42→20:53)
[2018-11-05] MEDS: DUONEB (A & A) INH SCH ×6 (03:19→22:36)
[2018-11-05 05:52] LABS: URINE SOURCE CATH
[2018-11-05 05:56] LABS: BILIRUBIN URINE NEGATIVE (NEGATIVE); BLOOD URINE NEGATIVE (NEGATIVE); COLOR YELLOW; GLUCOSE URINE NEGATIVE (NEGATIVE); KETONE URINE NEGATIVE (NEGATIVE); LEUKOCYTES URINE NEGATIVE (NEGATIVE); NITRITE URINE NEGATIVE (NEGATIVE); PROTEIN URINE TRACE mg/dL (NEGATIVE); SP GRAVITY URINE 1.012; TURBIDITY URINE CLEAR (CLEAR); UROBILINOGEN URINE NORMAL (NORMAL)
[2018-11-05 05:57] LABS: UR EPITHELIAL CELLS <10 /HPF (<10); URINE BACTERIA NEGATIVE /HPF; URINE RBC <10 /HPF (<10); URINE WBC <10 /HPF (<10)
[2018-11-05] MEDS: KLONOPIN PEG SCH ×3 (06:00→20:58)
[2018-11-05] MEDS: DEPAKENE LIQUID PEG SCH ×4 (06:03→20:54)
[2018-11-05 07:02] LABS: BASO# 0.02 X1000 (0.0-0.2); BASO% 0.1 % (0.0-0.8); EOS# 0.18 X1000 (0.0-0.7); EOS% 1.2 % (0.0-10.0); HEMATOCRIT 39.6 % (42.0-52.0); IMM GRAN# 0.04 X1000 (0.0-0.04); IMM GRAN% 0.3 % (0.0-0.5); LYMPH# 1.69 X1000 (1.2-3.4); LYMPH% 10.8 % (20.5-51.1); MCH 32.2 PG (27-31); MCHC 32.8 g/dL (33-37); MONO# 1.53 X1000 (0.11-0.59); MONO% 9.8 % (1.7-9.3); MPV 11.5 FL (7.4-10.4); NEUT# 12.12 X1000 (1.4-6.5); NEUT% 77.8 % (42.2-75.2); PLT 131 X1000 (130-400); RBC 4.04 XMIL (4.7-6.1); RDW 14.3 % (11.5-14.5); WBC 15.58 X1000 (4.8-10.8)
[2018-11-05] MEDS: PULMICORT INH SCH ×2 (07:20→19:28)
[2018-11-05] MEDS: MUCOMYST 20% INH SCH ×2 (07:20→19:28)
[2018-11-05 07:29] LABS: AGAP 15; ALB/GLOB RATIO 1.2; ALBUMIN 3.9 g/dL (3.5-5.0); ALKALINE PHOSPHATASE 67 U/L (32-122); BUN 5 mg/dL (8-22); CALCIUM 9.6 mg/dL (8.8-10.2); CHLORIDE 99 mmol/L (98-107); COSMO 271; CREATININE 0.4 mg/dL (0.7-1.2); ESTIMATED GFR > 60; GLUCOSE 167 mg/dL (70-104); GOT 21 U/L (10-34); GPT 12 U/L (10-44); MAGNESIUM 1.8 mg/dL (1.5-2.7); PHOSPHORUS 3.1 mg/dL (2.7-4.5); SODIUM 135 mmol/L (136-145); TCO2 21 mmol/L (25-35); TOTAL PROTEIN 7.1 g/dL (6.3-8.3)
[2018-11-05] MEDS: SENNA LIQUID PEG SCH (08:24)
[2018-11-05] MEDS: ZANTAC LIQUID PEG SCH ×2 (08:24→20:52)
[2018-11-05] MEDS: DULCOLAX PR SCH (08:25)
--- NOTE | 2018-11-05 09:36 | Diag Imaging Result Doc PS360 ---
EXAM: FLAT/UPRIGHT ABD/1 VIEW CHEST HISTORY: r/o constipation; cough TECHNIQUE: Flat and upright with chest, four views COMPARISON: 11/03/2018 FINDINGS: The lungs are well expanded. The left hemidiaphragm is elevated. No cardiomegaly. Questionable small infiltrate in the lower left lung. No free air beneath the diaphragm. Severe scoliosis. Air is found throughout the small bowel loops and colon. There is a gastric tube. No bowel obstruction. No organomegaly. IMPRESSION: 1.Questionable small left basilar infiltrate behind the heart 2.No constipation Electronically signed by Kwaku Burris 11/05/2018 9:33 AM
--- NOTE | 2018-11-05 14:06 | PROGRESS NOTE ---
DATE: 11/05/2018 SUBJECTIVE: The patient is nonverbal. He is lying in bed requiring 2 L of oxygen by nasal cannula. According to family who was at bedside, the patient is feeling better. OBJECTIVE: Vitals: Temperature 98.2 degrees, heart rate 107, respiratory rate 22, blood pressure 113/73, O2 saturation 95% on 2 L nasal cannula. General Examination: This is a chronically ill-looking, 28-year-old male with history of cerebral palsy, lying in bed, in no acute distress. Cardiovascular: S1, S2 heard. No murmurs, gallops, or rubs. Regular rate and rhythm. Respiratory: Coarse breath sounds and rhonchi seen both pulmonary bases. Patient not using any accessory muscles or having work of breathing. Abdomen: Soft. Nontender to palpation. Bowel sounds present. No organomegaly. PEG tube in place. No signs of infection around it. Bowel sounds present. No organomegaly. Extremities: The patient has lower extremities contracted. Has peripheral pulses present. Neurological: The patient is nonverbal. Moves 4 extremities spontaneously. LABORATORY DATA: White cell count 15.58, hemoglobin 13.0, hematocrit 39.6, platelets 131,000. Sodium 135. ASSESSMENT AND PLAN: 1. Left lower lobe pneumonia. White cell count is elevated today. Patient is on antibiotics, in this case Zosyn. At this point, we will continue with the same medication. White cell count is elevated as we mentioned before, but he is not spiking any fever. We will continue with breathing treatments and monitoring CBC daily. 2. Epilepsy. We will continue home medications. 3. Severe protein-calorie malnutrition with anorexia secondary to cerebral palsy. Patient has been seen by a dietitian. We will continue with PEG tube feedings. 4. Cerebral palsy. Aware. We will continue home medications. 5. Thrombocytopenia, resolved. cc: Supa Vaz MD
[2018-11-05] MEDS ORDERED: ATIVAN IV PRN (18:19)
[2018-11-05] MEDS: ZONEGRAN PEG SCH (20:58)
[2018-11-05] MEDS ORDERED: KLONOPIN PEG ONE (22:34)
[2018-11-06] MEDS: ROBITUSSIN PO SCH ×4 (01:28→15:42)
[2018-11-06] MEDS: ZOSYN 3.375 GM in NS 50 ML IV SCH ×4 (02:34→20:49)
[2018-11-06] MEDS: DUONEB (A & A) INH SCH ×6 (02:45→23:02)
[2018-11-06] MEDS: DEPAKENE LIQUID PO SCH ×2 (05:47→15:44)
[2018-11-06] MEDS: KLONOPIN PEG SCH ×3 (05:48→20:49)
[2018-11-06 06:27] LABS: BASO# 0.02 X1000 (0.0-0.2); BASO% 0.2 % (0.0-0.8); EOS# 0.16 X1000 (0.0-0.7); EOS% 1.4 % (0.0-10.0); HEMATOCRIT 37.7 % (42.0-52.0); HEMOGLOBIN 12.2 g/dL (14.0-18.0); LYMPH# 1.64 X1000 (1.2-3.4); LYMPH% 14.5 % (20.5-51.1); MCHC 32.4 g/dL (33-37); MONO# 1.22 X1000 (0.11-0.59); MONO% 10.8 % (1.7-9.3); MPV 11.4 FL (7.4-10.4); NEUT# 8.24 X1000 (1.4-6.5); NEUT% 73.1 % (42.2-75.2); PLT 130 X1000 (130-400); RBC 3.81 XMIL (4.7-6.1); RDW 14.8 % (11.5-14.5); WBC 11.28 X1000 (4.8-10.8)
[2018-11-06 06:47] LABS: AGAP 13; ALB/GLOB RATIO 1.1; ALBUMIN 3.5 g/dL (3.5-5.0); ALKALINE PHOSPHATASE 60 U/L (32-122); BUN 5 mg/dL (8-22); CALCIUM 9.4 mg/dL (8.8-10.2); CHLORIDE 101 mmol/L (98-107); COSMO 272; CREATININE 0.5 mg/dL (0.7-1.2); ESTIMATED GFR > 60; GLUCOSE 120 mg/dL (70-104); GOT 13 U/L (10-34); GPT 8 U/L (10-44); MAGNESIUM 1.8 mg/dL (1.5-2.7); PHOSPHORUS 4.4 mg/dL (2.7-4.5); POTASSIUM 3.9 mmol/L (3.5-5.1); SODIUM 137 mmol/L (136-145); TCO2 23 mmol/L (25-35); TOTAL BILIRUBIN 0.29 mg/dL (0.20-1.00); TOTAL PROTEIN 6.8 g/dL (6.3-8.3)
[2018-11-06] MEDS: MUCOMYST 20% INH SCH ×2 (07:27→19:43)
[2018-11-06] MEDS: PULMICORT INH SCH ×2 (07:27→19:43)
[2018-11-06] MEDS: DULCOLAX PR SCH (08:05)
[2018-11-06] MEDS: ZANTAC LIQUID PEG SCH ×2 (08:06→20:51)
[2018-11-06] MEDS: SENNA LIQUID PEG SCH (08:07)
[2018-11-06] MEDS ORDERED: DEPAKENE LIQUID PO SCH (09:00)
--- NOTE | 2018-11-06 13:38 | PROGRESS NOTE ---
DATE: 11/06/2018 SUBJECTIVE: The patient is nonverbal. As per family who is at bedside, the patient was feeling fine. OBJECTIVE: Vital Signs: Temperature 98.1 degrees, heart rate 109, respiratory rate 13, blood pressure 102/69, O2 saturation is 91% on 2 L nasal cannula. General Examination: This is a chronically ill-appearing, 28-year-old, male with a history of cerebral palsy since lying in bed, in no acute distress. Cardiovascular Examination: S1 and S2 heard. No murmurs, gallops, or rubs. Regular rate and rhythm. Respiratory Examination: Minimal coarse breath sounds noted in both pulmonary bases. Patient is not using any accessory muscles or having work of breathing. Abdomen: Soft, nontender to palpation. Bowel sounds present. No organomegaly. PEG tube in place. No signs of infection around it. Extremities: The patient has lower extremities contracted but peripheral pulses are present in both legs. Neurological Examination: The patient is nonverbal. Moves 4 extremities spontaneously. Laboratory Data: White cell count is 11.28, hemoglobin 12.2, hematocrit 37.7, platelets 130,000. Normal BMP. ASSESSMENT AND PLAN: 1. Left lower lobe pneumonia. White cell count is almost back to normal. It is 11. The patient is on Zosyn. Considering that this patient has been readmitted to the hospital many times, I prefer to keep this patient over the weekend and on Sunday, we will re- evaluate again. At that time, he will receive 7 days of Zosyn. He is not spiking any fever. We will continue to monitor this patient closely. 2. Epilepsy. We will continue with home medications; in this case, valproic acid for him. 3. Severe protein calorie malnutrition with anorexia secondary to cerebral palsy. Patient is with percutaneous endoscopic gastrostomy tube feedings. We will continue with the same management. 4. Cerebral palsy, aware. 5. Thrombocytopenia, resolved. 6. Disposition. We will continue to monitor this patient closely. cc: [facility]
[2018-11-06] MEDS: DEPAKENE LIQUID PEG SCH (20:48)
[2018-11-06] MEDS: ZONEGRAN PEG SCH (20:48)
[2018-11-07] MEDS: DUONEB (A & A) INH SCH ×6 (03:37→23:15)
[2018-11-07] MEDS: ROBITUSSIN PO SCH ×7 (04:20→20:57)
[2018-11-07] MEDS: ZOSYN 3.375 GM in NS 50 ML IV SCH ×4 (04:20→20:57)
[2018-11-07] MEDS: DEPAKENE LIQUID PO SCH ×2 (06:31→14:20)
[2018-11-07] MEDS: KLONOPIN PEG SCH ×4 (06:36→20:58)
[2018-11-07 07:22] LABS: BASO# 0.02 X1000 (0.0-0.2); BASO% 0.2 % (0.0-0.8); EOS# 0.14 X1000 (0.0-0.7); EOS% 1.1 % (0.0-10.0); HEMATOCRIT 35.5 % (42.0-52.0); HEMOGLOBIN 11.4 g/dL (14.0-18.0); IMM GRAN# 0.03 X1000 (0.0-0.04); IMM GRAN% 0.2 % (0.0-0.5); LYMPH% 14.6 % (20.5-51.1); MCH 32.2 PG (27-31); MCHC 32.1 g/dL (33-37); MCV 100.3 FL (81-99); MONO# 1.81 X1000 (0.11-0.59); MONO% 14.7 % (1.7-9.3); MPV 11.7 FL (7.4-10.4); NEUT# 8.55 X1000 (1.4-6.5); NEUT% 69.2 % (42.2-75.2); PLT 146 X1000 (130-400); RBC 3.54 XMIL (4.7-6.1); RDW 14.8 % (11.5-14.5); WBC 12.35 X1000 (4.8-10.8)
[2018-11-07] MEDS: PULMICORT INH SCH ×2 (07:48→20:00)
[2018-11-07] MEDS: MUCOMYST 20% INH SCH ×2 (07:48→20:00)
[2018-11-07 07:50] LABS: AGAP 10; ALBUMIN 3.4 g/dL (3.5-5.0); ALKALINE PHOSPHATASE 79 U/L (32-122); BUN 6 mg/dL (8-22); CALCIUM 9.3 mg/dL (8.8-10.2); CHLORIDE 102 mmol/L (98-107); COSMO 272; CREATININE 0.5 mg/dL (0.7-1.2); ESTIMATED GFR > 60; GLUCOSE 100 mg/dL (70-104); GOT 14 U/L (10-34); GPT 8 U/L (10-44); MAGNESIUM 1.8 mg/dL (1.5-2.7); POTASSIUM 3.8 mmol/L (3.5-5.1); SODIUM 137 mmol/L (136-145); TCO2 25 mmol/L (25-35); TOTAL BILIRUBIN 0.33 mg/dL (0.20-1.00); TOTAL PROTEIN 6.9 g/dL (6.3-8.3)
[2018-11-07] MEDS: ZANTAC LIQUID PEG SCH ×2 (08:23→21:00)
[2018-11-07] MEDS: SENNA LIQUID PEG SCH (08:24)
[2018-11-07] MEDS: DULCOLAX PR SCH (08:25)
--- NOTE | 2018-11-07 14:45 | PROGRESS NOTE ---
DATE: 11/07/2018 SUBJECTIVE: Patient is nonverbal. Family is at bedside, in this case his mom who reports that he is feeling fine. OBJECTIVE: Vital Signs: Temperature 97.7 degrees, heart rate 97, respiratory rate 20, blood pressure 108/68, O2 saturation 98% on room air. General Examination: This is a chronically ill- appearing, 28-year-old male with history of cerebral palsy since , lying in bed, in no acute distress. Cardiovascular: S1, S2 heard. No murmurs, gallops, or rubs. Regular rate and rhythm. Respiratory: Coarse breath sounds noted in both pulmonary bases. Patient is not using any accessory muscles or having work of breathing. Abdomen: Soft. Nontender to palpation. Bowel sounds present. No organomegaly. PEG tube in place. No signs of infection around it. Extremities: Patient has lower extremities that are contracted. Peripheral pulses present in both legs. Neurological: Patient is alert and oriented x3. Moves 4 extremities. LABORATORY DATA: Reviewed. ASSESSMENT AND PLAN: 1. Left lower lobe pneumonia. The white cell count is 12 today. The patient continues to be on Zosyn. Clinically he is doing fine. No issues noted as per family who is at bedside. So at this time, we are going to continue with the same antibiotic. 2. Epilepsy. Patient is on home medications. 3. Severe protein calorie malnutrition with anorexia secondary to cerebral palsy. Patient is on PEG tube feedings. No residuals noted. We will continue with the same management. 4. Thrombocytopenia, resolved. 5. Disposition. We will continue to monitor this patient closely. I am planning to keep this patient until next Sunday and I think at that time he will be ready to go home. cc: Supa Vaz MD
[2018-11-07] MEDS ORDERED: CALMOSEPTINE OINTMENT TOP PRN (16:09)
[2018-11-07] MEDS: DEPAKENE LIQUID PEG SCH (20:58)
[2018-11-07] MEDS: ZONEGRAN PEG SCH (20:58)
[2018-11-08] MEDS: ROBITUSSIN PO SCH ×7 (01:30→20:35)
[2018-11-08] MEDS: DUONEB (A & A) INH SCH ×6 (03:20→23:18)
[2018-11-08] MEDS: ZOSYN 3.375 GM in NS 50 ML IV SCH ×4 (03:55→20:31)
[2018-11-08] MEDS: KLONOPIN PEG SCH ×3 (06:10→20:34)
[2018-11-08] MEDS: DEPAKENE LIQUID PO SCH ×2 (06:10→14:00)
[2018-11-08 06:55] LABS: BASO# 0.01 X1000 (0.0-0.2); BASO% 0.1 % (0.0-0.8); EOS# 0.27 X1000 (0.0-0.7); EOS% 3.9 % (0.0-10.0); HEMATOCRIT 34.1 % (42.0-52.0); LYMPH# 1.08 X1000 (1.2-3.4); LYMPH% 15.6 % (20.5-51.1); MCH 32.4 PG (27-31); MCHC 32.3 g/dL (33-37); MCV 100.6 FL (81-99); MONO# 1.14 X1000 (0.11-0.59); MONO% 16.5 % (1.7-9.3); MPV 10.9 FL (7.4-10.4); NEUT# 4.41 X1000 (1.4-6.5); NEUT% 63.9 % (42.2-75.2); PLT 146 X1000 (130-400); RBC 3.39 XMIL (4.7-6.1); RDW 14.4 % (11.5-14.5); WBC 6.91 X1000 (4.8-10.8)
[2018-11-08 07:15] LABS: AGAP 12; ALB/GLOB RATIO 0.9; ALBUMIN 3.3 g/dL (3.5-5.0); ALKALINE PHOSPHATASE 59 U/L (32-122); BUN 6 mg/dL (8-22); CALCIUM 9.3 mg/dL (8.8-10.2); CHLORIDE 102 mmol/L (98-107); COSMO 278; CREATININE 0.6 mg/dL (0.7-1.2); ESTIMATED GFR > 60; GLUCOSE 110 mg/dL (70-104); GOT 15 U/L (10-34); GPT 7 U/L (10-44); MAGNESIUM 1.9 mg/dL (1.5-2.7); PHOSPHORUS 3.6 mg/dL (2.7-4.5); POTASSIUM 4.3 mmol/L (3.5-5.1); SODIUM 140 mmol/L (136-145); TCO2 26 mmol/L (25-35); TOTAL BILIRUBIN 0.19 mg/dL (0.20-1.00); TOTAL PROTEIN 6.9 g/dL (6.3-8.3)
[2018-11-08] MEDS: PULMICORT INH SCH ×2 (07:36→19:51)
[2018-11-08] MEDS: MUCOMYST 20% INH SCH ×2 (07:36→19:51)
[2018-11-08] MEDS: DULCOLAX PR SCH (09:13)
[2018-11-08] MEDS: ZANTAC LIQUID PEG SCH ×2 (09:14→20:33)
[2018-11-08] MEDS: SENNA LIQUID PEG SCH (09:14)
--- NOTE | 2018-11-08 11:02 | PROGRESS NOTE ---
DATE: 11/08/2018 SUBJECTIVE: Patient is nonverbal. Father is at the bedside who reports that he is feeling fine. OBJECTIVE: Vital Signs: Temperature 97.9 degrees, heart rate 97, respiratory rate 20, blood pressure 99/63, and O2 saturation 99% on room air. General: This is a chronically ill- appearing, 28-year-old male with history of cerebral palsy since lying in bed in no acute distress. Cardiovascular: S1, S2 heard. No murmurs, gallops, or rubs. Regular rate and rhythm. Respiratory: Minimal coarse breath sounds noted in both pulmonary bases. Definitely better in comparing with admission. Patient is not using any accessory muscles or having work of breathing. Abdomen: Soft, nontender to palpation. Bowel sounds present. No organomegaly. PEG tube in place. No signs of infection around it. Extremities: Patient has lower extremities that are very contracted. Peripheral pulses present in both legs. Neurological: Patient is alert and oriented x3. Moves all 4 extremities. LABORATORY DATA: Reviewed. ASSESSMENT AND PLAN: 1. Left lower lobe pneumonia. White count finally is back to normal today. The patient is on Zosyn day #4 of treatment. At this point, we will continue with same management. 2. Epilepsy. Patient is on home medications. 3. Severe protein calorie malnutrition with anorexia secondary to cerebral palsy. Patient is on PEG tube feedings. No other residual noted. Continue with the same management. 4. Thrombocytopenia resolved. 5. Disposition. At this point, I am planning to continue with the same antibiotic management. We will keep this patient over the weekend and on Sunday if his labs and imaging are okay, we will discharge him. cc: Supa Vaz MD
[2018-11-08] MEDS: DEPAKENE LIQUID PEG SCH (20:32)
[2018-11-08] MEDS: ZONEGRAN PEG SCH (20:32)
[2018-11-09] MEDS: ROBITUSSIN PO SCH ×6 (01:47→20:52)
[2018-11-09] MEDS: ZOSYN 3.375 GM in NS 50 ML IV SCH ×4 (02:08→20:51)
[2018-11-09] MEDS: DUONEB (A & A) INH SCH ×6 (03:05→22:40)
[2018-11-09] MEDS: DEPAKENE LIQUID PO SCH ×2 (05:57→15:38)
[2018-11-09] MEDS: KLONOPIN PEG SCH ×3 (05:58→20:51)
[2018-11-09 07:25] LABS: BASO# 0.02 X1000 (0.0-0.2); BASO% 0.3 % (0.0-0.8); EOS# 0.41 X1000 (0.0-0.7); EOS% 6.5 % (0.0-10.0); HEMATOCRIT 36.7 % (42.0-52.0); HEMOGLOBIN 11.7 g/dL (14.0-18.0); LYMPH# 1.24 X1000 (1.2-3.4); LYMPH% 19.8 % (20.5-51.1); MCH 32.3 PG (27-31); MCHC 31.9 g/dL (33-37); MCV 101.4 FL (81-99); MONO# 0.85 X1000 (0.11-0.59); MONO% 13.6 % (1.7-9.3); MPV 11.2 FL (7.4-10.4); NEUT# 3.74 X1000 (1.4-6.5); NEUT% 59.8 % (42.2-75.2); PLT 190 X1000 (130-400); RBC 3.62 XMIL (4.7-6.1); RDW 14.4 % (11.5-14.5); WBC 6.26 X1000 (4.8-10.8)
[2018-11-09] MEDS: MUCOMYST 20% INH SCH ×2 (07:42→19:34)
[2018-11-09] MEDS: PULMICORT INH SCH ×2 (07:42→19:34)
[2018-11-09 07:43] LABS: AGAP 15; ALB/GLOB RATIO 1.2; ALBUMIN 3.7 g/dL (3.5-5.0); ALKALINE PHOSPHATASE 67 U/L (32-122); BUN 8 mg/dL (8-22); CALCIUM 9.2 mg/dL (8.8-10.2); CHLORIDE 105 mmol/L (98-107); COSMO 281; CREATININE 0.4 mg/dL (0.7-1.2); ESTIMATED GFR > 60; GLUCOSE 94 mg/dL (70-104); GOT 17 U/L (10-34); GPT 8 U/L (10-44); POTASSIUM 4.4 mmol/L (3.5-5.1); SODIUM 142 mmol/L (136-145); TCO2 22 mmol/L (25-35); TOTAL BILIRUBIN 0.18 mg/dL (0.20-1.00); TOTAL PROTEIN 6.8 g/dL (6.3-8.3)
[2018-11-09] MEDS: DULCOLAX PR SCH (09:39)
[2018-11-09] MEDS: ZANTAC LIQUID PEG SCH ×2 (09:41→20:54)
[2018-11-09] MEDS: SENNA LIQUID PEG SCH (09:41)
[2018-11-09] MEDS ORDERED: LOTRIMIN 1% CREAM TOP ONE (10:48)
--- NOTE | 2018-11-09 11:39 | PROGRESS NOTE ---
DATE: 11/09/2018 SUBJECTIVE: Patient is nonverbal. Family who is at bedside reports that he has irritation in the inguinal area, in and around the genital area with itching. OBJECTIVE: Vital Signs: Temperature 97.2 degrees, heart rate 92, respiratory rate 16, blood pressure 110/70, O2 saturation 98% on room air. General Examination: This is a chronically ill- appearing, 28-year-old male with history of cerebral palsy since , lying in bed in no acute distress. Cardiovascular exam: S1, S2 heard. No murmurs, gallops, or rubs. Regular rate and rhythm. Respiratory exam: Minimal coarse breath sounds noted in both pulmonary bases, definitely better. Comparing with admission, patient is not using any accessory muscles or having work of breathing. Abdomen: Soft, nontender to palpation. Bowel sounds present. No organomegaly. PEG tube in place. No signs of infection. Extremities: Lower extremities are very contracted. Peripheral pulses present in both legs. Genitourinary: Around the perineal area on the testicle, there is erythema noted that is apparently very itchy. Neurological exam: Patient is awake, but nonverbal because of cerebral palsy. Moves 4 extremities spontaneously. LABORATORY DATA: Reviewed. ASSESSMENT AND PLAN: 1. Left lower lobe pneumonia. White cell count continues to be in the normal range. Patient is on Zosyn day #5 of treatment. At this point, we will continue with same management. 2. Epilepsy will continue home medications. 3. Perineal erythema. We are going to provide the same medication that mother uses at home when he had skin inflammation, in this case, mupirocin, clotrimazole and Desitin. 4. Severe protein calorie malnutrition. I will continue with percutaneous endoscopic gastrostomy tube feedings. 5. Thrombocytopenia, resolved . 6. Disposition: I think this patient is doing good. I think the patient will be discharged tomorrow on Sunday morning. Tomorrow we will want CT scan of the chest to make sure that he is going in the right direction. cc: Supa Vaz MD
[2018-11-09] MEDS: DESITIN OINTMENT TOP SCH (15:33)
[2018-11-09] MEDS: BACTROBAN OINTMENT TOP SCH (15:33)
[2018-11-09] MEDS: DIFLUCAN 150 MG/NS 150 MG/75 ML IVPB IV SCH (15:35)
[2018-11-09] MEDS: DEPAKENE LIQUID PEG SCH (20:52)
[2018-11-09] MEDS: ZONEGRAN PEG SCH (20:52)
[2018-11-10] MEDS: ROBITUSSIN PO SCH ×6 (00:50→21:06)
[2018-11-10] MEDS: ZOSYN 3.375 GM in NS 50 ML IV SCH ×4 (02:41→21:05)
[2018-11-10] MEDS: DUONEB (A & A) INH SCH ×6 (03:15→23:11)
[2018-11-10] MEDS: DEPAKENE LIQUID PO SCH ×2 (06:10→14:23)
[2018-11-10] MEDS: KLONOPIN PEG SCH ×3 (06:10→21:05)
[2018-11-10] MEDS: MUCOMYST 20% INH SCH ×2 (07:51→19:18)
[2018-11-10] MEDS: PULMICORT INH SCH ×2 (07:51→19:18)
[2018-11-10] MEDS: ZANTAC LIQUID PEG SCH ×2 (10:21→21:08)
[2018-11-10] MEDS: BACTROBAN OINTMENT TOP SCH (10:21)
[2018-11-10] MEDS: DESITIN OINTMENT TOP SCH (10:21)
[2018-11-10] MEDS: DULCOLAX PR SCH (10:21)
[2018-11-10] MEDS: SENNA LIQUID PEG SCH (10:22)
--- NOTE | 2018-11-10 11:15 | PROGRESS NOTE ---
DATE: 11/10/2018 SUBJECTIVE: The patient is nonverbal. Mother is at bedside and reports that his perineal erythema is getting better. No complaints noted. OBJECTIVE: Vital Signs: Temperature 97.8 degrees, heart rate 90, respiratory rate 19, blood pressure 121/80, O2 saturation 100% on room air. General Examination: This is a 28-year-old, male with a history of cerebral palsy since , lying in bed, in no acute distress. Cardiovascular Examination: S1 and S2 heard. No murmurs, gallops, or rubs. Regular rate and rhythm. Respiratory Examination: Minimal coarse breath sounds noted in both pulmonary bases. The patient is not using any accessory muscles or having work of breathing. Abdomen: Soft, nontender to palpation. Bowel sounds present. PEG tube in place. No signs of infection. Extremities: Lower extremities are very contracted. Peripheral pulses present in both legs. Genitourinary: Around the perineal area and around the testicle, there is erythema that is less noted today. Neurological Examination: The patient is awake. Nonverbal. Moves 4 extremities spontaneously. Laboratory Data: Reviewed. ASSESSMENT AND PLAN: 1. Left lower lobe pneumonia. Patient is on Zosyn day #6. White cell count from yesterday was normal. At this point, we will continue with the same management. 2. Epilepsy. We will continue home medications. 3. Perineal erythema. We will continue with mupirocin, clotrimazole, and Desitin. 4. Severe protein calorie malnutrition. We will continue with percutaneous endoscopic gastrostomy tube feedings. 5. Thrombocytopenia, resolved. 6. Disposition. I think this patient is doing good. He has been in the hospital 7 days so I think tomorrow, we can send this patient home with oral antibiotics through our percutaneous endoscopic gastrostomy tube. cc: Supa Vaz MD
--- NOTE | 2018-11-10 11:59 | Diag Imaging Result Doc PS360 ---
EXAM: CHEST-1 VIEW HISTORY: pna TECHNIQUE: Chest single view COMPARISON: 11/05/2018 FINDINGS: The lungs are well expanded. The left hemidiaphragm is elevated. The heart is not enlarged. No change in the right-sided PICC line. The vessels are not distended. There are minimal increased markings in the left base behind the heart. No effusion identified. IMPRESSION: Stable exam. Electronically signed by Kwaku Burris 11/10/2018 11:57 AM
[2018-11-10] MEDS: DIFLUCAN 150 MG/NS 150 MG/75 ML IVPB IV SCH (14:33)
[2018-11-10] MEDS: DEPAKENE LIQUID PEG SCH (21:05)
[2018-11-10] MEDS: ZONEGRAN PEG SCH (21:05)
[2018-11-11] MEDS: ZOSYN 3.375 GM in NS 50 ML IV SCH ×3 (02:33→14:48)
[2018-11-11] MEDS: ROBITUSSIN PO SCH ×4 (02:33→14:48)
[2018-11-11] MEDS: DUONEB (A & A) INH SCH ×3 (03:02→11:00)
[2018-11-11] MEDS: DEPAKENE LIQUID PO SCH ×2 (06:04→14:49)
[2018-11-11] MEDS: KLONOPIN PEG SCH ×2 (06:04→14:49)
[2018-11-11] MEDS: MUCOMYST 20% INH SCH (07:28)
[2018-11-11] MEDS: PULMICORT INH SCH (07:28)
[2018-11-11] MEDS: BACTROBAN OINTMENT TOP SCH (10:47)
[2018-11-11] MEDS: DULCOLAX PR SCH (10:48)
[2018-11-11] MEDS: DESITIN OINTMENT TOP SCH (10:48)
[2018-11-11] MEDS: ZANTAC LIQUID PEG SCH (10:50)
[2018-11-11] MEDS: SENNA LIQUID PEG SCH (10:51)
[2018-11-11] MEDS: DIFLUCAN 150 MG/NS 150 MG/75 ML IVPB IV SCH (12:00)
[2018-11-11 13:05] VITALS: BP 101/70
--- NOTE | 2018-11-11 13:56 | DISCHARGE SUMMARY ---
ADMISSION DATE: 11/05/2018 DISCHARGE DATE: 11/11/2018 CONSULTATIONS: None. PERTINENT PROCEDURES: 1. Abdominal x-ray, questionable left bibasilar infiltrate behind the heart. No constipation. 2. Final chest x-ray, stable exam. DISCHARGE DIAGNOSES: 1. Left lower lobe pneumonia. The patient is being discharged home on p.o. antibiotics. 2. Epilepsy. Continue home medicines. 3. Perineal erythema. Continue with Desitin and clotrimazole. 4. Severe protein calorie malnutrition. Continue PEG tube feedings. 5. Thrombocytopenia, resolved. HOSPITAL COURSE: Briefly, Mr. Lopez is a 28-year-old male with a history of cerebral palsy, epilepsy, neurogenic bladder, who was recently treated for pneumonia with IV antibiotics through a PICC line. He was brought back to the ED because his mother felt that he was getting more congested and coughing. He was evaluated in the ED and was found to have nonproductive cough, was diagnosed with bronchitis with recent treatment for pneumonia. He had missed his last IV antibiotic of Zosyn through his PICC line. He was continued on his IV Zosyn, bronchodilators and aggressive pulmonary toilet with NT suction. He has received 7 days of IV Zosyn for continued left lower lobe pneumonia. He will be discharged home today on p.o. antibiotics with Augmentin. VITAL SIGNS: At time of discharge, temperature is 97.5 degrees, heart rate 80, respirations 18, blood pressure 108/71, O2 is 97% on room air. DISCHARGE DIET: Tube feedings per PEG tube. DISCHARGE MEDICATIONS: 1. Zonegran 200 mg PEG tube at bedtime. 2. Albuterol nebulizer 1 each nebulizer RT 4 times a day. 3. Atrovent 1 dose nebulizer 4 times a day. 4. Depakote 10 mL per PEG tube t.i.d. 5. Dulcolax 10 mg TN daily. 6. Klonopin 2 mg PEG tube b.i.d. 7. Klonopin 1 mg PEG tube daily. 8. Pulmicort 1 dose nebulizer b.i.d. 9. Senna liquid 10 mL per PEG tube q.a.m. 10. Zantac liquid 20 mL PEG tube nightly. 11. Augmentin 12.5 mL p.o. q.4 hours per PEG tube. 12. Bactroban 1 g topical daily. 13. Desitin ointment 1 g topical daily. FOLLOWUP: Mr. Lopez is being discharged back home with family and home health with [facility]. He is to take all antibiotics as prescribed as well as all other medications. He can return to the ED or call 911 for any worsening of symptoms. Dictated by MICHEAL Figueroa for Supa Vaz MD Addendum: Patient seen and examined by myself. Agree with MICHEAL note. It reflects my assessment and plan. Patient is being discharged in stable condition to home. Will be seen by primary care doctor in a week. cc: Supa Vaz MD [facility]
== END 2018-11-11 15:09 | disposition home health service (06) | DRG 193 ==
LOC: SUPCPDRO → ED 21:53 → SUATTDRO 11-04 00:19 → 3N 11-04 00:19 → INTOOBSV 11-04 00:19
PROVIDERS: ATTEND Internal Medicine
CPT/HCPCS: 71010; 71045; 74022; 80053; 81001; 82550; 82784; 83605; 83735; 84100; 84134; 84484; 85025; 85610; 85730; 87040; 87070; 87077; 87186; 87205; 94640; 94667; 94668; 94760; 94761; 99285; A9270; J1450; J2543